=== PATIENT | male | born 1965 | race Caucasian/White ===

== ENCOUNTER 2016-10-27 23:12 | Emergency (ER) | payer MEDICAID ==
[~2016-10-27] VITALS: Ht 185.4 cm; Wt 195.0 kg
[~2016-10-27 23:12] MED LIST: FURO1TAB60 PO; HYDR-3535 PO; METF1000 PO; POTA10CA PO
[2016-10-27 23:20] VITALS: BP 155/81; PULSE 109; RESP 18; TEMP 98.9; O2SAT 93
[2016-10-27 23:58] VITALS: BP 156/84; PULSE 96; RESP 18; TEMP 98.8; O2SAT 96
--- NOTE | 2016-10-28 00:21 | PD ---
HPI Chief Complaint: Oral / Dental Pain or Problem Time Seen by Provider: 00:16 Travel History International Travel<30 days: No Contact w/Intl Traveler<30days: No Traveled to known affect area: No History of Present Illness HPI 51-year-old male patient presents to the ER today because he states that he had his teeth pulled by a dentist last week, and states that the dentist had sewn the gums over his teeth, and he states that he wants an x-ray in order to prove that he still has teeth underneath the gums and that the dentist did not do his job properly. He states that he has ongoing pain since the surgery. Pain is currently a 4 out of 10. He states that otherwise, he had some bleeding initially and it has since stopped. He is concerned that there is still teeth under his gum. He denies any fevers, facial swelling, or any other issues. Modifying Factors: None Associated Signs & Symptoms: Wants to get his teeth checked out after having dental extractions last week Risk Factors: None PFSH Past Medical History Arthritis: No Asthma: No Autoimmune Disease: No Blood Disorders: No Anxiety: No Depression: Yes Heart Rhythm Problems: No Cancer: No Cardiovascular Problems: Yes Chemotherapy: No Chest Pain: Yes Congestive Heart Failure: Yes (BNP 2, 6-20-16) COPD: No Cerebrovascular Accident: Yes Diabetes: Yes Diminished Hearing: No Endocrine: No GERD: No Glaucoma: No Genitourinary: No Hepatitis: No Hiatal Hernia: No Hypertension: Yes Immune Disorder: No Kidney Stones: No Musculoskeletal: Yes (BLE EDEMA) Neurologic: No Psychiatric: No Reproductive: No Respiratory: Yes (SMOKER) Migraines: Yes Myocardial Infarction: No Radiation Therapy: No Renal Failure: No Sickle Cell Disease: No Sleep Apnea: No Thyroid Disease: No Ulcer: No Past Surgical History Abdominal Surgery: No AICD: No Appendectomy: No Arteriovenous Shunt: No Cardiac Surgery: No Cholecystectomy: No Ear Surgery: No Endocrine Surgery: No Eye Surgery: No Genitourinary Surgery: No Gynecologic Surgery: No Insulin Pump: No Joint Replacement: No Oral Surgery: No Pacemaker: No Thoracic Surgery: Yes (TONSILLECTOMY) Tonsillectomy: Yes Other Surgery: Yes (VARICOSE VEINS) Social History Alcohol Use: No Tobacco Use: Yes (1.5 PPD) Substance Use: Yes (SMOKES MARIJUANA, DAILY) Allergies-Medications (Allergen,Severity, Reaction): Coded Allergies: Penicillin (Verified Allergy, Mild, HIVES, 10/27/16) Reported Meds & Prescriptions Reported Meds & Active Scripts Active Reported Potassium Chloride ER (Potassium Chloride) 10 Meq Cap 10 Meq PO DAILY Metformin (Metformin HCl) 1,000 Mg Tab 1,000 Mg PO BIDPC With meals Lasix (Furosemide) 40 Mg Tab 40 Mg PO DAILY Lortab (Hydrocodone-Acetaminophen) 10-325 Mg Tab 1 Tab PO DAILY PRN Review of Systems Except as stated in HPI: all other systems reviewed are Neg Physical Exam Narrative GENERAL: This is a well-nourished, well-developed patient, in no apparent distress. HEAD: Atraumatic. Normocephalic. No temporal or scalp tenderness. No facial edema. NECK: Supple, nontender. No meningeal signs. Trachea midline. DENTAL: A potential is status post extraction of all the upper and lower teeth, no significant gingival edema, erythema, or fluctuance, extraction site appears to be healing well. No malocclusion. Data Data Last Documented VS Vital Signs Date Time Temp Pulse Resp B/P Pulse Ox O2 Delivery O2 Flow Rate FiO2 10/27/16 23:58 98.8 96 18 156/84 96 MDM Medical Decision Making Medical Screen Exam Complete: Yes Emergency Medical Condition: Yes Medical Record Reviewed: Yes Differential Diagnosis Dental issues, wound check Narrative Course At this point, I do not see any signs of poor wound healing or infections. My plan would be to release the patient with follow-up to dentist. Return for any new swelling, pain, and as needed. The plan was discussed with the patient and he states understanding. Diagnosis Primary Impression: Dentalgia Disposition: DISCHARGE HOME Condition: Stable Cherie Marie MD Oct 28, 2016 00:21
[2016-10-28] MEDS ORDERED: ACETAMINOPHEN/HYDROcodone 325 MG/5 MG TAB PO ONE (00:30)
== END 2016-10-28 00:29 | disposition home or self-care (01) ==
LOC: PHED 23:12
DX: K08.89 Other specified disorders of teeth and supporting structures (principal); E11.9 Type 2 diabetes mellitus without complications; I10 Essential (primary) hypertension; F17.200 Nicotine dependence, unspecified, uncomplicated; Z79.84 Long term (current) use of oral hypoglycemic drugs; Z86.59 Personal history of other mental and behavioral disorders; Z86.79 Personal history of other diseases of the circulatory system; Z87.39 Personal history of other diseases of the musculoskeletal system and connective tissue; Z86.69 Personal history of other diseases of the nervous system and sense organs
CPT/HCPCS: 99282

== ENCOUNTER 2017-01-08 08:49 | Inpatient (IN) | payer MEDICAID ==
[~2017-01-08] VITALS: Ht 186.7 cm; Wt 186.0 kg
[2017-01-08 08:59] VITALS: BP 136/77; PULSE 116; RESP 20; TEMP 98.7; O2SAT 91
--- NOTE | 2017-01-08 09:27 | PD ---
HPI Chief Complaint: Edema Time Seen by Provider: 09:12 Travel History International Travel<30 days: No Contact w/Intl Traveler<30days: No Traveled to known affect area: No History of Present Illness HPI 51-year-old male with history of chronic leg edema, has been following up with wound care for his leg issues, presents to the ER today because he states that his legs are weeping more, is foul smelling, and becoming more red. He denies any fevers. He reports shortness of breath although he states that is fairly chronic. He denies other issues. Modifying Factors: None Associated Signs & Symptoms: Bilateral leg weeping, foul-smelling, or more red Risk Factors: Chronic leg edema PFSH Past Medical History Arthritis: No Asthma: No Autoimmune Disease: No Blood Disorders: No Anxiety: No Depression: Yes Heart Rhythm Problems: No Cancer: No Cardiovascular Problems: Yes Chemotherapy: No Chest Pain: Yes Congestive Heart Failure: Yes (BNP 2, 6-20-16) COPD: No Cerebrovascular Accident: Yes Diabetes: Yes Patient Takes Glucophage: No Diminished Hearing: No Endocrine: No Gastrointestinal Disorders: No GERD: No Glaucoma: No Genitourinary: No Hepatitis: No Hiatal Hernia: No Heparin Induced Thrombocytopen: No Hypertension: Yes Immune Disorder: No Implanted Vascular Access Dvce: No Kidney Stones: No Musculoskeletal: Yes (BLE EDEMA) Neurologic: No Psychiatric: No Reproductive: No Respiratory: Yes (SMOKER) Migraines: Yes Myocardial Infarction: No Radiation Therapy: No Renal Failure: No Sickle Cell Disease: No Sleep Apnea: No Thyroid Disease: No Ulcer: No Past Surgical History Abdominal Surgery: No AICD: No Appendectomy: No Arteriovenous Shunt: No Cardiac Surgery: No Cholecystectomy: No Ear Surgery: No Endocrine Surgery: No Eye Surgery: No Genitourinary Surgery: No Gynecologic Surgery: No Insulin Pump: No Joint Replacement: No Neurologic Surgery: No Oral Surgery: No Pacemaker: No Thoracic Surgery: Yes (TONSILLECTOMY) Tonsillectomy: Yes Other Surgery: Yes (VARICOSE VEINS) Social History Alcohol Use: No Tobacco Use: Yes (2 PPD) Substance Use: Yes (SMOKES MARIJUANA, DAILY) Allergies-Medications (Allergen,Severity, Reaction): Coded Allergies: Penicillin (Verified Allergy, Mild, HIVES, 01/08/17) Morphine (Verified Allergy, Unknown, 01/08/17) Reported Meds & Prescriptions Reported Meds & Active Scripts Active Reported Lortab (Hydrocodone-Acetaminophen) 10-325 Mg Tab 1 Tab PO DAILY PRN Review of Systems Except as stated in HPI: all other systems reviewed are Neg Physical Exam Narrative GENERAL: Well-developed middle age white male patient currently in mild respiratory distress. Awake and oriented 3. SKIN: Focused skin assessment warm/dry. HEAD: Atraumatic. Normocephalic. EYES: Pupils equal and round. No scleral icterus. No injection or drainage. ENT: No nasal bleeding or discharge. Mucous membranes pink and moist. NECK: Trachea midline. No JVD. CARDIOVASCULAR: Regular rate and rhythm. No murmur appreciated. RESPIRATORY: No accessory muscle use. Decreased at the bases. Breath sounds equal bilaterally. GASTROINTESTINAL: Abdomen soft, non-tender, nondistended. Hepatic and splenic margins not palpable. MUSCULOSKELETAL: There is intense edema and barking of both legs with notable erythematous areas of weeping in the lower leg areas, tender to palpation. NEUROLOGICAL: Awake and alert. No obvious cranial nerve deficits. Motor grossly within normal limits. Normal speech. PSYCHIATRIC: Appropriate mood and affect; insight and judgment normal. Data Data Last Documented VS Vital Signs Date Time Temp Pulse Resp B/P Pulse Ox O2 Delivery O2 Flow Rate FiO2 01/08/17 11:33 16 01/08/17 08:59 98.7 116 136/77 91 Orders Complete Blood Count With Diff (01/08/17 09:13) Comprehensive Metabolic Panel (01/08/17 09:13) Lactic Acid Sepsis Protocol (01/08/17 09:13) Blood Culture (01/08/17 09:13) Chest, Single Ap (01/08/17 09:13) Ecg Monitoring (01/08/17 09:13) Iv Access Insert/Monitor (01/08/17 09:13) Oximetry (01/08/17 09:13) Oxygen Administration (01/08/17 09:13) B-Type Natriuretic Peptide (01/08/17 09:13) Hydromorphone Pf Inj (Dilaudid Pf Inj) (01/08/17 09:30) Ondansetron Inj (Zofran Inj) (01/08/17 09:30) Hydromorphone Pf Inj (Dilaudid Pf Inj) (01/08/17 11:15) Furosemide Inj (Lasix Inj) (01/08/17 12:00) Clindamycin Inj (Cleocin Inj) (01/08/17 11:49) Labs Laboratory Tests Test 01/08/17 01/08/17 10:00 11:05 Sodium Level 138 MEQ/L Potassium Level 4.0 MEQ/L Chloride Level 103 MEQ/L Carbon Dioxide Level 25.5 MEQ/L Anion Gap 10 MEQ/L Blood Urea Nitrogen 15 MG/DL Creatinine 0.81 MG/DL Estimat Glomerular Filtration 100 ML/MIN Rate Random Glucose 286 MG/DL Calcium Level 8.9 MG/DL Total Bilirubin 0.3 MG/DL Aspartate Amino Transf 31 U/L (AST/SGOT) Alanine Aminotransferase 35 U/L (ALT/SGPT) Alkaline Phosphatase 109 U/L Total Protein 7.4 GM/DL Albumin 2.7 GM/DL White Blood Count 9.7 TH/MM3 Red Blood Count 5.09 MIL/MM3 Hemoglobin 16.1 GM/DL Hematocrit 48.7 % Mean Corpuscular Volume 95.6 FL Mean Corpuscular Hemoglobin 31.7 PG Mean Corpuscular Hemoglobin 33.2 % Concent Red Cell Distribution Width 13.3 % Platelet Count 300 TH/MM3 Mean Platelet Volume 6.7 FL Neutrophils (%) (Auto) 70.5 % Lymphocytes (%) (Auto) 19.3 % Monocytes (%) (Auto) 7.2 % Eosinophils (%) (Auto) 2.2 % Basophils (%) (Auto) 0.8 % Neutrophils # (Auto) 6.8 TH/MM3 Lymphocytes # (Auto) 1.9 TH/MM3 Monocytes # (Auto) 0.7 TH/MM3 Eosinophils # (Auto) 0.2 TH/MM3 Basophils # (Auto) 0.1 TH/MM3 CBC Comment DIFF FINAL Differential Comment Lactic Acid Level 2.3 mmol/L B-Type Natriuretic Peptide 2 PG/ML MDM Medical Decision Making Medical Screen Exam Complete: Yes Emergency Medical Condition: Yes Medical Record Reviewed: Yes Interpretation(s) Laboratory Tests Test 01/08/17 01/08/17 10:00 11:05 Random Glucose 286 MG/DL (74-106) Albumin 2.7 GM/DL (3.4-5.0) Mean Platelet Volume 6.7 FL (7.0-11.0) Neutrophils (%) (Auto) 70.5 % (16.0-70.0) Lactic Acid Level 2.3 mmol/L (0.4-2.0) Differential Diagnosis Bilateral leg swelling, weeping, rednesscellulitis versus worsening leg edema versus CHF Narrative Course This appears to be mostly chronic although there may be a new cellulitis. Patient has been in for same issue for several times. He is afebrile. White blood cell count is normal. She does have a mild shift and lactate elevation. IV antibiotics were ordered for the patient. Patient had requested several times to get pain medications and indicates that he wants Dilaudid. Dilaudid was given in the ER. At this point, it appears that much of this is chronic but considering exacerbation and lactate elevation, I have offered to admit the patient for further treatment. However, the patient is declining at this time stating that he wants to get connected with wound care at [facility]. He states that he had followed up with Dr. Sandoval in the past and had been fired from the practice. He also states that he had a primary care doctor that he doesn't like, had fired his primary care physician and is currently waiting to see a new physician in 2 weeks. Patient also states that he does not like to take Lasix because he thinks that it stops him up. However, he does not have any rash or trouble breathing, or any other symptoms that appear to be an allergic reaction. I think that he will need more Lasix to try to get some of the fluid off. Lasix has been prescribed as well. He will need further follow- up with primary care. He should return for any worsening in symptoms as necessary or return if he changes his mind on that admission. The plan was discussed with him and he states understanding. Diagnosis Primary Impression: Cellulitis of both lower extremities Additional Impression: Chronic venous stasis dermatitis Med/Other Pt SpecificInfo: Prescription(s) given Scripts Clindamycin 300 Mg [id number] Mg PO TID #21 CAP Ref 0 Prov:Cherie Marie MD 01/08/17 Furosemide (Lasix)40 Mg Tab40 Mg PO BID #60 TAB Ref 0 Prov:Cherie Marie MD 01/08/17 Ibuprofen (Motrin Ib)200 Mg [id number] Mg PO QID PRN (PAIN SCALE 1 TO 10) #30 Prov:Cherie Marie MD 01/08/17 Disposition: 01 DISCHARGE HOME Condition: Stable Cherie Marie MD Jan 08, 2017 09:27
[2017-01-08] MEDS ORDERED: HYDROmorphone HCL PF 1 MG/ML VIAL IV PUSH ONE ×2 (09:30→11:15)
[2017-01-08] MEDS ORDERED: ONDANSETRON HCL 4 MG/2 ML VIAL IV PUSH ONE (09:30)
[2017-01-08 10:37] LABS: CHLORIDE 103 MEQ/L (98-107); SODIUM (NA) 138 MEQ/L (136-145)
[2017-01-08 10:41] LABS: ANION GAP 10 MEQ/L (5-15); BICARBONATE 25.5 MEQ/L (21.0-32.0); BLOOD UREA NITROGEN 15 MG/DL (7-18)
[2017-01-08 10:44] LABS: ALT (GPT) 35 U/L (12-78); AST (GOT) 31 U/L (15-37); GLOMERULAR FILTRATION RATE 100 ML/MIN (>89)
[2017-01-08 10:46] LABS: TOTAL BILIRUBIN ADULT 0.3 MG/DL (0.2-1.0)
[2017-01-08 10:47] LABS: ALKALINE PHOSPHATASE 109 U/L (45-117)
[2017-01-08 11:21] LABS: AUTOMATED NEUTROPHIL # 6.8 TH/MM3 (1.8-7.7); BASOPHIL # 0.1 TH/MM3 (0-0.2); BASOPHIL % 0.8 % (0.0-2.0); EOSINOPHIL # 0.2 TH/MM3 (0-0.4); EOSINOPHIL % 2.2 % (0.0-4.0); HEMATOCRIT 48.7 % (39.0-51.0); LYMPH % 19.3 % (9.0-44.0); LYMPHOCYTE # 1.9 TH/MM3 (1.0-4.8); MEAN CELL VOLUME 95.6 FL (80.0-100.0); MEAN CORPUSCULAR HEMOGLOBIN 31.7 PG (27.0-34.0); MEAN CORPUSCULAR HGB CONC 33.2 % (32.0-36.0); MONO % 7.2 % (0.0-8.0); NEUT % 70.5 % (16.0-70.0); PLATELET COUNT 300 TH/MM3 (150-450); RED BLOOD COUNT 5.09 MIL/MM3 (4.50-5.90); RED CELL DISTRIBUTION WIDTH 13.3 % (11.6-17.2); WHITE BLOOD COUNT 9.7 TH/MM3 (4.0-11.0)
[2017-01-08 11:31] LABS: HEMO FLAGS DIFF FINAL
--- NOTE | 2017-01-08 11:46 | RADHPO ---
EXAM DATE/TIME: 01/08/2017 09:29 [place] COMPARISON: CHEST PA & LAT, January 16, 2016, 0:00. INDICATIONS : Short of breath. Bilateral lower extremity edema/weeping. MEDICAL HISTORY : Hypertension. Congestive heart failure. Deep venous thrombosis. Snoker. CVA. BLE edema. SURGICAL HISTORY : Tonsillectomy. BLE vein stripping. ENCOUNTER: Initial ACUITY: 3 days PAIN SCORE: 0/10 LOCATION: chest FINDINGS: The heart appears mildly enlarged. There is no overt congestive failure. No pleural effusions are see n. There is mild chronic appearing interstitial change which is stable compared to previous of 6. The visualized bony structures are grossly intact. CONCLUSION: 1. Chronic appearing interstitial changes and mild cardiac enlargement. No acute abnormality. Hang Castillo MD on January 08, 2017 at 11:43 Board Certified Radiologist. This report was verified electronically.
[2017-01-08] MEDS ORDERED: CLINDAMYCIN INJ 900 MG in SODIUM CHLORIDE 0.9% INJ 100 ML IV STA (11:49)
[2017-01-08] MEDS ORDERED: FUROSEMIDE 40 MG/4 ML VIAL IV PUSH ONE (12:00)
[2017-01-08] MEDS ORDERED: CLIN1CAP6 PO (12:05)
[2017-01-08] MEDS ORDERED: FURO1TAB60 PO (12:05)
[2017-01-08] MEDS ORDERED: IBUP-1129 PO (12:05)
[2017-01-08 12:52] VITALS: BP 141/82; PULSE 82; RESP 20; O2SAT 91
[2017-01-08] MEDS ORDERED: LACTULOSE SYRUP 20 GM/30 ML CUP PO PRN (13:15)
[2017-01-08] MEDS ORDERED: ACETAMINOPHEN/HYDROcodone 325 MG/7.5 MG TAB PO PRN (13:15)
[2017-01-08] MEDS ORDERED: SENNOSIDES 8.6 MG TAB PO PRN (13:15)
[2017-01-08] MEDS ORDERED: ACETAMINOPHEN/HYDROcodone 325 MG/5 MG TAB PO PRN (13:15)
[2017-01-08] MEDS ORDERED: HYDROmorphone HCL PF 1 MG/ML VIAL IV PRN (13:15)
[2017-01-08] MEDS ORDERED: ONDANSETRON HCL 4 MG/2 ML VIAL IVP PRN (13:15)
[2017-01-08] MEDS ORDERED: ACETAMINOPHEN 325 MG TAB PO PRN ×2 (13:15)
[2017-01-08] MEDS ORDERED: MAGNESIUM HYDROXIDE SUSP 30 ML CUP PO PRN (13:15)
[2017-01-08] MEDS ORDERED: BISACODYL 10 MG SUPP RECTAL PRN (13:15)
[2017-01-08] MEDS ORDERED: SODIUM CHLORIDE 0.9% FLUSH 10 ML FLUSH IV FLUSH PRN (13:15)
[2017-01-08 14:29] VITALS: BP 149/89; PULSE 101; RESP 20; TEMP 96.9; O2SAT 94
[2017-01-08 14:47] LABS: LACTIC ACID GHOST NOT REPORTABLE
[2017-01-08] MEDS: HEPARIN SODIUM - SQ 10,000 UNITS/ML VIAL SQ SCH ×3 (15:00→22:00)
[2017-01-08 15:37] VITALS: O2SAT 91
--- NOTE | 2017-01-08 16:53 | HHI.HP ---
[facility] Marquez Solo, Admission Diagnosis chronic lymphedema/chronic venous stasis/cellulitis Diagnoses: (1) Chronic venous stasis dermatitis (2) Cellulitis of both lower extremities (3) Morbid obesity (4) Diabetes mellitus Chief Complaint: edema, leg pain Travel History International Travel<30 Days: No Contact w/Intl Traveler <30 Da: No Traveled to Known Affected Are: No History of Present Illness The patient is a 51-year-old male with history of chronic lower extremity edema and venous stasis dermatitis. He had been seeing wound care for ulcerative lesions of both lower legs, but states that he does not like any of his doctors and has not been back to wound care in a few months. He states that his his legs are becoming increasingly painful. They are having more drainage, which is foul-smelling. They have had increased erythema as well. He denies fever, chills , night sweats. Review of Systems Constitutional: DENIES: Fever, Chills, Night Sweats Eyes: DENIES: Blurred vision, Vision loss Ears, nose, mouth, throat: DENIES: Hearing loss Respiratory: COMPLAINS OF: Shortness of breath, DENIES: Cough, Wheezing, Sputum production Cardiovascular: DENIES: Chest pain, Palpitations, Dyspnea on Exertion, Lower Extremity Edema Gastrointestinal: DENIES: Abdominal pain, Constipation, Diarrhea, Nausea, Vomiting Genitourinary: DENIES: Urinary frequency, Urinary incontinence, Urgency, Hematuria, Dysuria, Nocturia Musculoskeletal: DENIES: Joint pain, Muscle aches Integumentary: COMPLAINS OF: Rash, DENIES: Pruritus Hematologic/lymphatic: DENIES: Bruising Neurologic: DENIES: Headache Past Family Social History Past Medical History Depression Questionable history of congestive heart failure History of CVA Diabetes mellitus Hypertension Chronic bilateral lower extremity edema with venous stasis changes Past Surgical History Tonsillectomy Varicose vein surgery Reported Medications Lortab (Hydrocodone-Acetaminophen) 10-325 Mg Tab 1 Tab PO DAILY PRN Allergies: Coded Allergies: Penicillin (Verified Allergy, Mild, HIVES, 01/08/17) Morphine (Verified Allergy, Unknown, 01/08/17) Family History Denies Social History Smokes 2-3 packs per day. Smokes marijuana daily. Denies alcohol use. Physical Exam Vital Signs Vital Signs Date Time Temp Pulse Resp B/P Pulse Ox O2 Delivery O2 Flow Rate FiO2 01/08/17 15:37 91 21 01/08/17 15:33 91 Room Air 01/08/17 14:29 96.9 101 20 149/89 94 01/08/17 12:52 82 20 141/82 91 01/08/17 11:33 16 01/08/17 08:59 98.7 116 20 136/77 91 Physical Exam GENERAL: Morbidly obese male in no acute distress. HEENT: Normocephalic, atraumatic. Pupils equal, round and reactive. Extraocular movements intact. No scleral icterus. No injection or drainage. Oropharynx is clear. Mucous membranes are moist. CARDIOVASCULAR: Regular rate and rhythm without murmurs, gallops, or rubs. RESPIRATORY: Clear to auscultation. No wheezes, rales, or rhonchi. Breathing is non-labored. GASTROINTESTINAL: Abdomen soft, non-tender, nondistended. EXTREMITIES: Severe bilateral lower extremity edema with venous stasis changes including hyperplasia of the skin. There are multiple ulcerative lesions with weeping. PSYCH: Alert and oriented x 3. Laboratory Laboratory Tests Test 01/08/17 01/08/17 01/08/17 10:00 11:05 13:55 Sodium Level 138 Potassium Level 4.0 Chloride Level 103 Carbon Dioxide Level 25.5 Anion Gap 10 Blood Urea Nitrogen 15 Creatinine 0.81 Estimat Glomerular Filtration 100 Rate Random Glucose 286 Calcium Level 8.9 Total Bilirubin 0.3 Aspartate Amino Transf 31 (AST/SGOT) Alanine Aminotransferase 35 (ALT/SGPT) Alkaline Phosphatase 109 Total Protein 7.4 Albumin 2.7 White Blood Count 9.7 Red Blood Count 5.09 Hemoglobin 16.1 Hematocrit 48.7 Mean Corpuscular Volume 95.6 Mean Corpuscular Hemoglobin 31.7 Mean Corpuscular Hemoglobin 33.2 Concent Red Cell Distribution Width 13.3 Platelet Count 300 Mean Platelet Volume 6.7 Neutrophils (%) (Auto) 70.5 Lymphocytes (%) (Auto) 19.3 Monocytes (%) (Auto) 7.2 Eosinophils (%) (Auto) 2.2 Basophils (%) (Auto) 0.8 Neutrophils # (Auto) 6.8 Lymphocytes # (Auto) 1.9 Monocytes # (Auto) 0.7 Eosinophils # (Auto) 0.2 Basophils # (Auto) 0.1 CBC Comment DIFF FINAL Differential Comment Lactic Acid Level 2.3 1.1 B-Type Natriuretic Peptide 2 Date/Time Procedure Status Source Growth 01/08/17 10:00 Aerobic Blood Culture Received Blood Peripheral Pending 01/08/17 10:00 Anaerobic Blood Culture Received Blood Peripheral Pending Result Diagram: 01/08/17 1105 01/08/17 1000 Imaging Last Impressions Chest X-Ray 01/08/17 0913 Signed Impressions: Service Date/Time: Sunday, January 08, 2017 09:29 - CONCLUSION: 1. Chronic appearing interstitial changes and mild cardiac enlargement. No acute abnormality. Hang Castillo MD Assessment and Plan Assessment and Plan 1. Bilateral lower extremity edema, cellulitis: Continue antibiotics, furosemide. Consult wound care physician. 2. Hypertension: Patient does not report any chronic meds. Monitor blood pressure. Vasotec as needed. 3. Diabetes mellitus: Monitor Accu-Cheks and cover with sliding scale insulin. 4. DVT prophylaxis: Subcutaneous heparin. Francesco Bhat MD Jan 08, 2017 16:53
[2017-01-08] MEDS: CLINDAMYCIN INJ 600 MG in SODIUM CHLORIDE 0.9% INJ 100 ML IV SCH (18:10)
[2017-01-08 19:30] VITALS: O2SAT 91
[2017-01-08] MEDS: HYDROmorphone HCL PF 1 MG/ML VIAL IV PRN (20:25)
[2017-01-08] MEDS: SODIUM CHLORIDE 0.9% FLUSH 10 ML FLUSH IV FLUSH SCH (21:00)
[2017-01-08] MEDS: DOCUSATE SODIUM 50 MG/SENNA 8.6 MG TAB PO SCH (21:00)
[2017-01-08 22:18] VITALS: BP 136/67; PULSE 112; RESP 22; TEMP 96; O2SAT 94
[2017-01-09] MEDS ORDERED: CLINDAMYCIN 150 MG CAP PO ONE (00:55)
[2017-01-09 01:07] VITALS: BP 133/62; PULSE 10; RESP 20; TEMP 98; O2SAT 88
[2017-01-09] MEDS: HEPARIN SODIUM - SQ 10,000 UNITS/ML VIAL SQ SCH ×3 (04:50→21:21)
[2017-01-09] MEDS: CLINDAMYCIN INJ 600 MG in SODIUM CHLORIDE 0.9% INJ 100 ML IV SCH ×6 (06:00→23:57)
[2017-01-09 08:00] VITALS: BP 115/65; PULSE 107; RESP 20; TEMP 98.2; O2SAT 90
[2017-01-09] MEDS: DOCUSATE SODIUM 50 MG/SENNA 8.6 MG TAB PO SCH ×2 (09:00→21:00)
[2017-01-09 09:02] LABS: AUTOMATED NEUTROPHIL # 6.6 TH/MM3 (1.8-7.7); BASOPHIL % 0.5 % (0.0-2.0); EOSINOPHIL # 0.2 TH/MM3 (0-0.4); EOSINOPHIL % 1.8 % (0.0-4.0); LYMPHOCYTE # 1.9 TH/MM3 (1.0-4.8); MEAN CELL VOLUME 95.5 FL (80.0-100.0); MEAN CORPUSCULAR HEMOGLOBIN 31.6 PG (27.0-34.0); MONO % 7.8 % (0.0-8.0); NEUT % 69.9 % (16.0-70.0); PLATELET COUNT 295 TH/MM3 (150-450); RED BLOOD COUNT 4.81 MIL/MM3 (4.50-5.90); RED CELL DISTRIBUTION WIDTH 13.8 % (11.6-17.2); WHITE BLOOD COUNT 9.4 TH/MM3 (4.0-11.0)
[2017-01-09] MEDS: SODIUM CHLORIDE 0.9% FLUSH 10 ML FLUSH IV FLUSH SCH ×2 (09:04→23:51)
[2017-01-09] MEDS: HYDROmorphone HCL PF 1 MG/ML VIAL IV PRN ×5 (09:04→23:57)
[2017-01-09 09:06] LABS: HEMO FLAGS DIFF FINAL
[2017-01-09 09:07] LABS: BICARBONATE 27.7 MEQ/L (21.0-32.0)
[2017-01-09] MEDS ORDERED: PNEUMOCOCCAL POLYVALENT INJ 25 MCG/0.5 ML SYR IM ONE (10:00)
[2017-01-09 12:00] VITALS: BP 124/83; PULSE 102; RESP 20; TEMP 97.9; O2SAT 91
--- NOTE | 2017-01-09 15:19 | HHI.PR ---
Subjective Remarks Follow up lower extremity cellulitis. Patient reporting significant pain in his legs. He is requesting increase in pain meds. He states "if you don't increase them, I'll just call my dharmesh to bring some up here. Either way, my pain will be better today." Objective Vitals Vital Signs Date Time Temp Pulse Resp B/P Pulse Ox O2 Delivery O2 Flow Rate FiO2 01/09/17 13:48 18 01/09/17 12:00 97.9 102 20 124/83 91 01/09/17 08:00 98.2 107 20 115/65 90 01/09/17 01:07 98.0 10 20 133/62 88 01/08/17 22:18 96.0 112 22 136/67 94 01/08/17 19:30 91 21 01/08/17 15:37 91 21 01/08/17 15:33 91 Room Air I/O 01/08/17 01/08/17 01/08/17 01/09/17 01/09/17 01/09/17 07:00 15:00 23:00 07:00 15:00 23:00 Intake Total 100 ml 500 ml 480 ml Output Total 560 ml Balance 100 ml 500 ml -80 ml Intake Oral 500 ml 480 ml IV Total 100 ml Output Urine Total 560 ml Stool Total 0 ml # Voids 2 Result Diagram: 01/09/1781401/09/17814 Imaging Last Impressions Chest X-Ray 01/08/17912 Signed Impressions: Service Date/Time: Sunday, January 08, 2017 09:29 - CONCLUSION: 1. Chronic appearing interstitial changes and mild cardiac enlargement. No acute abnormality. Hang Castillo MD Objective Remarks General: Morbidly obese male in no acute distress. Heart: Regular rate and rhythm. No murmur. Lungs: Clear to auscultation bilaterally. No wheezes, rales, or rhonchi. Breathing is nonlabored. Abdomen: Soft, nontender, nondistended. Extremities: Severe bilateral lower extremity edema with venous stasis changes including hyperplasia of the skin. There are multiple ulcerative lesions with weeping. Psych: Alert and oriented. Procedures None Urinary Catheter: No Vascular Central Line Catheter: No A/P Problem List: (1) Chronic venous stasis dermatitis ICD Code: I83.10 Status: Chronic (2) Cellulitis of both lower extremities ICD Code: L03.115 Status: Acute (3) Morbid obesity ICD Code: E66.01 Status: Chronic (4) Diabetes mellitus ICD Code: E11.9 Status: Chronic Assessment and Plan 1. Bilateral lower extremity edema, cellulitis: Continue antibiotics, furosemide. Wound care physician consulted. 2. Hypertension: Patient does not report any chronic meds. BP is stable. Vasotec as needed. 3. Diabetes mellitus: Monitor Accu-Cheks and cover with sliding scale insulin. 4. DVT prophylaxis: Subcutaneous heparin. Nursing was notified about patient's statement that he would have someone bring him medications from outside the hospital and I asked them to watch him closely. Problem Qualifiers (1) Diabetes mellitus: Francesco Bhat MD Jan 09, 2017 15:19
[2017-01-09] MEDS ORDERED: GLUCAGON 1 MG/ML VIAL OTHER PRN (15:30)
[2017-01-09] MEDS ORDERED: DEXTROSE 50% IN WATER 50 ML VIAL(D50) IV PRN (15:30)
[2017-01-09 16:00] VITALS: BP 140/86; PULSE 101; RESP 20; TEMP 96; O2SAT 96
[2017-01-09] MEDS: INSULIN ASPART SUPPLEMENTAL SCALE SQ SCH ×2 (16:00→21:00)
[2017-01-09 21:05] VITALS: BP 133/84; PULSE 101; RESP 20; TEMP 96.6; O2SAT 93
[2017-01-10] VITALS: BP 141/75; PULSE 104; RESP 20; TEMP 96.4; O2SAT 98
[2017-01-10] MEDS: CLINDAMYCIN INJ 600 MG in SODIUM CHLORIDE 0.9% INJ 100 ML IV SCH ×3 (05:53→17:20)
[2017-01-10] MEDS: HEPARIN SODIUM - SQ 10,000 UNITS/ML VIAL SQ SCH ×3 (05:56→22:00)
[2017-01-10 08:00] VITALS: BP 137/71; PULSE 96; RESP 22; TEMP 97.2; O2SAT 92
[2017-01-10] MEDS: HYDROmorphone HCL PF 1 MG/ML VIAL IV PRN (08:16)
[2017-01-10] MEDS: INSULIN ASPART SUPPLEMENTAL SCALE SQ SCH ×4 (08:19→21:00)
[2017-01-10] MEDS: DOCUSATE SODIUM 50 MG/SENNA 8.6 MG TAB PO SCH ×2 (08:22→21:00)
[2017-01-10] MEDS: SODIUM CHLORIDE 0.9% FLUSH 10 ML FLUSH IV FLUSH SCH ×2 (08:22→21:00)
[2017-01-10 12:00] VITALS: BP 132/75; PULSE 97; RESP 20; TEMP 97.3; O2SAT 92
[2017-01-10] MEDS ORDERED: HYDROmorphone HCL 2 MG TAB PO PRN (15:45)
[2017-01-10 16:00] VITALS: BP 147/82; PULSE 102; RESP 24; TEMP 97.5; O2SAT 94
--- NOTE | 2017-01-10 17:10 | HHI.PR ---
Subjective Remarks Follow up leg cellulitis. Patient still reporting significant pain in his legs. He does not currently have an IV. He is requesting more pain meds. Still with drainage from the legs. Objective Vitals Vital Signs Date Time Temp Pulse Resp B/P Pulse Ox O2 Delivery O2 Flow Rate FiO2 01/10/17 12:00 97.3 97 20 132/75 92 01/10/17 08:00 97.2 96 22 137/71 92 01/10/17 00:00 96.4 104 20 141/75 98 01/09/17 21:08 2 01/09/17 21:05 96.6 101 20 133/84 93 01/09/17 20:51 21 01/09/17 17:57 18 I/O 01/09/17 01/09/17 01/09/17 01/10/17 01/10/17 01/10/17 07:00 15:00 23:00 07:00 15:00 23:00 Intake Total 480 ml 720 ml 700 ml Output Total 560 ml Balance -80 ml 720 ml 700 ml Intake Oral 480 ml 720 ml 500 ml IV Total 200 ml Output Urine Total 560 ml Stool Total 0 ml # Voids 2 3 Result Diagram: 01/09/17 0815 01/09/17814 Imaging Last Impressions Chest X-Ray 01/08/17912 Signed Impressions: Service Date/Time: Sunday, January 08, 2017 09:29 - CONCLUSION: 1. Chronic appearing interstitial changes and mild cardiac enlargement. No acute abnormality. Hang Castillo MD Objective Remarks General: Morbidly obese male in no acute distress. Heart: Regular rate and rhythm. No murmur. Lungs: Clear to auscultation bilaterally. No wheezes, rales, or rhonchi. Breathing is nonlabored. Abdomen: Soft, nontender, nondistended. Extremities: Severe bilateral lower extremity edema with venous stasis changes including verrucous hyperplasia of the skin. There are multiple ulcerative lesions with weeping. Psych: Alert and oriented. Procedures None Urinary Catheter: No Vascular Central Line Catheter: No A/P Problem List: (1) Chronic venous stasis dermatitis ICD Code: I83.10 Status: Chronic (2) Cellulitis of both lower extremities ICD Code: L03.115 Status: Acute (3) Morbid obesity ICD Code: E66.01 Status: Chronic (4) Diabetes mellitus ICD Code: E11.9 Status: Chronic (5) Pseudomonas aeruginosa infection ICD Code: A49.8 Status: Acute (6) Streptococcal infectious disease ICD Code: A49.1 Status: Acute Assessment and Plan 1. Bilateral lower extremity edema, cellulitis: Continue furosemide. Wound care physician consulted. Evaluated by wound care nurse. Patient is refusing dressings/wraps. Wound culture growing Pseudomonas, Streptococcus. Adjust antibiotics. 2. Hypertension: Patient does not report any chronic meds. BP is stable. Vasotec as needed. 3. Diabetes mellitus: Monitor Accu-Cheks and cover with sliding scale insulin. 4. DVT prophylaxis: Subcutaneous heparin. The patient was found by security to be smoking a cigarette in his bathroom. Problem Qualifiers (1) Diabetes mellitus: Francesco Bhat MD Jan 10, 2017 17:10
[2017-01-10] MEDS ORDERED: NICOTINE 21 MG/24 HR PATCH T-DERMAL SCH (17:15)
[2017-01-10] MEDS ORDERED: LEVOFLOXACIN 500 MG TAB PO SCH (17:30)
[2017-01-10] MEDS ORDERED: CLINDAMYCIN 150 MG CAP PO SCH (18:00)
--- NOTE | 2017-01-10 18:22 | PD.WCN.NOT ---
Wound Consult Description: Patient seen on [facility] 3rd floor [place] for evaluation of wounds to bilateral lower extremities. Patient is sitting on side of bed when insurance underwriter arrived in room. Bilateral lower extremities noted with diffuse coverage of cobble stone like lesions presenting like elephantiasis nostras Verrucosa.Heavy foul smelling yellow/ serous drainage and macerated skin noted to oozing areas Dry dark discolored skin noted to areas on lower legs without drainage.Erythema noted to bilateral feet and just below bilateral knee areas .Applied shaving cream to bilateral lower extremities to loosen dirt and and add moisture to dry areas. Let set on BLE for 20 minutes. Instructed patient to let RN rinse shaving cream off BLE and Clean areas on BLE with drainage with wound cleanser.Instructed patient and RN to elevate patients legs on pillows while in bed or chair. Instructed RN to place ultrasorb pads under patients legs loosely wrapped to absorb drainage and change as needed. Patient states, " I will do this myself in the shower." Communicated with: MORIS Carpenter and Doctor Home Recommendation: Please Apply shaving cream to bilateral lower extremities and let sit in legs for 20 minutes. Please rinse off and cleanse oozing areas on legs with wound cleanser. Apply ultrasorb pads under patient's BLE, loosely wrapped around legs to absorb drainage and change as needed. Please elevate BLE while in bed or chair on pillows Anabella Pantoja CRN Jan 10, 2017 18:22
[2017-01-11] MEDS ORDERED: REMOVE OLD PATCH T-DERMAL SCH (09:00)
--- NOTE | 2017-01-22 16:29 | HHI.DS ---
Discharge Summary Admission Date Jan 08, 2017 at 12:31 Discharge Date: Jan 10, 2017 Admitting Diagnosis chronic lymphedema/chronic venous stasis/cellulitis (1) Chronic venous stasis dermatitis ICD Code: I83.10 (2) Cellulitis of both lower extremities ICD Code: L03.115 (3) Morbid obesity ICD Code: E66.01 (4) Diabetes mellitus ICD Code: E11.9 (5) Pseudomonas aeruginosa infection ICD Code: A49.8 (6) Streptococcal infectious disease ICD Code: A49.1 Procedures None Brief History - From Admission The patient is a 51-year-old male with history of chronic lower extremity edema and venous stasis dermatitis. He had been seeing wound care for ulcerative lesions of both lower legs, but states that he does not like any of his doctors and has not been back to wound care in a few months. He states that his his legs are becoming increasingly painful. They are having more drainage, which is foul-smelling. They have had increased erythema as well. He denies fever, chills , night sweats. Imaging Last Impressions Chest X-Ray 01/08/17 0913 Signed Impressions: Service Date/Time: Friday, January 08, 2017 09:29 - CONCLUSION: 1. Chronic appearing interstitial changes and mild cardiac enlargement. No acute abnormality. Hang Castillo MD PE at Discharge General: Morbidly obese male in no acute distress. Heart: Regular rate and rhythm. No murmur. Lungs: Clear to auscultation bilaterally. No wheezes, rales, or rhonchi. Breathing is nonlabored. Abdomen: Soft, nontender, nondistended. Extremities: Severe bilateral lower extremity edema with venous stasis changes including verrucous hyperplasia of the skin. There are multiple ulcerative lesions with weeping. Psych: Alert and oriented. Hospital Course The patient was admitted for management of bilateral lower extremity cellulitis , edema. He was continued on antibiotics and diuretics. Wound care was consulted. Patient showed some improvement in his clinical symptoms, but continued to have significant erythema, edema, and drainage of his lower legs. Pain medications were adjusted. Wound culture grew Pseudomonas. Antibiotics were adjusted. Patient signed out AGAINST MEDICAL ADVICE. Pt Condition on Discharge: Fair Discharge Disposition: Discharge Home (AGAINST MEDICAL ADVICE) Discharge Time: <= 30 minutes Francesco Bhat MD Jan 22, 2017 16:29
== END 2017-01-10 22:24 | disposition left against medical advice (07) | DRG 603 ==
LOC: PHED 08:49 → PHEDA 12:31 → PH3A 14:06
PROVIDERS: ADMIT Family Medicine; ATTEND Family Medicine
DX: L03.115 Cellulitis of right lower limb (principal); I10 Essential (primary) hypertension; Z68.43 Body mass index [BMI] 50.0-59.9, adult; E11.9 Type 2 diabetes mellitus without complications; F32.9 Major depressive disorder, single episode, unspecified; B96.5 Pseudomonas (aeruginosa) (mallei) (pseudomallei) as the cause of diseases classified elsewhere; A49.1 Streptococcal infection, unspecified site; E66.01 Morbid (severe) obesity due to excess calories; L03.116 Cellulitis of left lower limb; I83.12 Varicose veins of left lower extremity with inflammation; I83.11 Varicose veins of right lower extremity with inflammation; F17.210 Nicotine dependence, cigarettes, uncomplicated
CPT/HCPCS: 71010; 76937; 80048; 80053; 82948; 83605; 83880; 85025; 86403; 87040; 87070; 87077; 87186; 87205; 96374; 96375; 96376; J1170; J1644; J1815; J1940; J2405

== ENCOUNTER 2017-03-14 06:48 | Emergency (ER) | payer MEDICAID ==
[~2017-03-14] VITALS: Ht 180.3 cm; Wt 185.0 kg
[~2017-03-14 06:48] MED LIST changes: +CLIN1CAP6 PO; +IBUP-1129 PO; -METF1000 PO; -POTA10CA PO
[2017-03-14 06:51] VITALS: BP 143/75; PULSE 117; RESP 18; TEMP 98.6; O2SAT 94
[2017-03-14 07:06] VITALS: BP 143/75; PULSE 117; RESP 16; TEMP 98.6; O2SAT 94
[2017-03-14] MEDS ORDERED: GABA300C5 PO (07:21)
[2017-03-14] MEDS ORDERED: LEVA750T9 PO (07:40)
--- NOTE | 2017-03-14 08:34 | PD ---
HPI Chief Complaint: Wound/Suture/Staple Re-Check Time Seen by Provider: 07:16 Travel History International Travel<30 days: No Contact w/Intl Traveler<30days: No Traveled to known affect area: No History of Present Illness HPI This patient has chronic lymphedema and wound care problems of his legs for many many years. He is noncompliant with taking care of himself. He is left his leg dressings on for weeks. He came to the ER to get a dressing change. He refuses to have any other things done. He denies fever. Some severity is moderate. No alleviating factors. PFSH Past Medical History Arthritis: No Asthma: No Autoimmune Disease: No Blood Disorders: No Anxiety: No Depression: Yes Heart Rhythm Problems: No Cancer: No Cardiovascular Problems: Yes Chemotherapy: No Chest Pain: Yes Congestive Heart Failure: Yes (BNP 2, 6-20-16) COPD: No Cerebrovascular Accident: Yes Diabetes: Yes Patient Takes Glucophage: No Diminished Hearing: No Endocrine: No Gastrointestinal Disorders: No GERD: No Glaucoma: No Genitourinary: No Hepatitis: No Hiatal Hernia: No Heparin Induced Thrombocytopen: No Hypertension: Yes Immune Disorder: No Implanted Vascular Access Dvce: No Kidney Stones: No Musculoskeletal: Yes (BLE EDEMA) Neurologic: No Psychiatric: No Reproductive: No Respiratory: Yes (SMOKER) Integumentary: Yes (CHRONIC CELLULITIS BLE) Migraines: Yes Myocardial Infarction: No Radiation Therapy: No Renal Failure: No Sickle Cell Disease: No Sleep Apnea: No Thyroid Disease: No Ulcer: No Past Surgical History Abdominal Surgery: No AICD: No Appendectomy: No Arteriovenous Shunt: No Cardiac Surgery: No Cholecystectomy: No Ear Surgery: No Endocrine Surgery: No Eye Surgery: No Genitourinary Surgery: No Gynecologic Surgery: No Insulin Pump: No Joint Replacement: No Neurologic Surgery: No Oral Surgery: No Pacemaker: No Thoracic Surgery: Yes (TONSILLECTOMY) Tonsillectomy: Yes Other Surgery: Yes (VARICOSE VEINS) Social History Alcohol Use: No Tobacco Use: Yes (2 PPD) Substance Use: Yes (SMOKES MARIJUANA, DAILY) Allergies-Medications (Allergen,Severity, Reaction): Coded Allergies: penicillin G (Unverified Allergy, Mild, HIVES, 03/14/17) morphine (Unverified Allergy, Unknown, 03/14/17) Reported Meds & Prescriptions Reported Meds & Active Scripts Active Levaquin (Levofloxacin) 750 Mg Tablet 750 Mg PO DAILY 14 Days Reported Gabapentin 300 Mg Cap 300 Mg PO BID Review of Systems General / Constitutional: No: Fever Eyes: No: Visual changes HENT: No: Headaches Cardiovascular: Positive: Edema, No: Chest Pain or Discomfort Respiratory: No: Shortness of Breath Gastrointestinal: No: Abdominal Pain Genitourinary: No: Dysuria Musculoskeletal: Positive: Edema, No: Pain Skin: No Rash Neurologic: No: Weakness Psychiatric: No: Depression Endocrine: No: Polydipsia Hematologic/Lymphatic: No: Easy Bruising Physical Exam Narrative GASTROINTESTINAL: Abdomen soft, non-tender, morbidly obese. Positive bowel sounds. No hepato-splenomegaly, or palpable masses. No guarding. NECK: Symmetrical appearance, midline trachea. No mass or crepitus. Thyroid without enlargement, tenderness, or mass. Legs: Patient's dressings are dirty and stuck to his legs. I spent literally 20 minutes with scissors cutting the dressings off of his legs When the dressings are off he reports that his legs look better than they had. He has thickened cobblestone-like skin suggesting this is very chronic. There is a bit of maceration to the whaley areas No active fluctuance or drainage Data Data Last Documented VS Vital Signs Date Time Temp Pulse Resp B/P Pulse Ox O2 Delivery O2 Flow Rate FiO2 03/14/17 07:06 98.6 117 16 143/75 94 MDM Medical Decision Making Medical Screen Exam Complete: Yes Emergency Medical Condition: Yes Medical Record Reviewed: Yes Differential Diagnosis Chronic lymphedema, noncompliance, cellulitis Narrative Course I have reviewed the patient's electronic medical record. Patient was hospitalized for 1 day in December for chronic leg problems. He left AMA the following day. I reviewed his culture results from that time which showed pseudomonas sensitive to Levaquin His legs don't look particularly cellulitic today but I'll giving him a prescription for 2 weeks of Levaquin I am wrapped his legs and we will rewrap them as best as we can arrange here in the ER Charge nurse Becka spoke with wound care to try to get him a follow-up Unfortunately they have fired him due to repeated noncompliance and they will not give him a follow-up appointment He desperately needs wound care but his compliance is ruining his chances He should try wound care elsewhere Diagnosis Primary Impression: Lymphedema 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
== END 2017-03-14 09:05 | disposition home or self-care (01) ==
LOC: PHED 06:48
DX: I89.0 Lymphedema, not elsewhere classified (principal); I87.2 Venous insufficiency (chronic) (peripheral); E11.9 Type 2 diabetes mellitus without complications; I10 Essential (primary) hypertension; F17.200 Nicotine dependence, unspecified, uncomplicated; Z86.59 Personal history of other mental and behavioral disorders; Z86.79 Personal history of other diseases of the circulatory system; Z87.39 Personal history of other diseases of the musculoskeletal system and connective tissue; Z87.2 Personal history of diseases of the skin and subcutaneous tissue; Z86.69 Personal history of other diseases of the nervous system and sense organs
CPT/HCPCS: 99283

== ENCOUNTER 2018-02-25 08:26 | Inpatient (IN) ==
[2018-02-25 09:08] LABS: Baso % (Auto) 0.4 % (0.0-2.0); Eos # (Auto) 0.1 th/mm3 (0.0-0.4); Eos % (Auto) 1.6 % (0.0-4.0); Hematocrit 46.9 % (39.0-51.0); Hemoglobin 16.5 gm/dL (13.0-17.0); Lymph # (Auto) 1.7 th/mm3 (1.0-4.8); Lymph % (Auto) 18.8 % (9.0-44.0); Mean Corpuscular HGB Conc 35.3 % (32.0-36.0); Mean Corpuscular Hemoglobin 33.8 pg (27.0-34.0); Mean Corpuscular Volume 95.9 fL (80.0-100.0); Mean Platelet Volume 6.9 fL (7.0-11.0); Mono # (Auto) 0.8 th/mm3 (0.0-0.9); Mono % (Auto) 9.3 % (0.0-8.0); Neut # (Auto) 6.2 th/mm3 (1.8-7.7); Neut % (Auto) 69.9 % (16.0-70.0); Platelet Count 262 th/mm3 (150-450); Red Blood Count 4.89 mil/mm3 (4.50-5.90); Red Cell Distribution Width 13.7 % (11.6-17.2); White Blood Count 8.8 th/mm3 (4.0-11.0)
[2018-02-25] MEDS ORDERED: Sod Chloride 0.9% Inj 1,000 ML IV.SIG ONE ×2 (09:34)
[2018-02-25 09:36] LABS: Alanine Aminotransferase 32 U/L (12-78); Albumin 2.7 g/dL (3.4-5.0); Anion Gap 6 meq/L (5-15); Aspartate Aminotransferase 19 U/L (15-37); Blood Urea Nitrogen 15 mg/dL (7-18); Calcium 8.5 mg/dL (8.5-10.1); Carbon Dioxide 26.9 meq/L (21.0-32.0); Chloride 99 meq/L (98-107); Glomerular Filtration Rate 65 mL/min (>89); Potassium 4.2 meq/L (3.5-5.1); Sodium 132 meq/L (136-145)
[2018-02-25 09:40] LABS: Alkaline Phosphatase 129 U/L (45-117); Glucose,Random 465 mg/dL (74-106); Total Protein 7.4 g/dL (6.4-8.2)
--- NOTE | 2018-02-25 10:24 | ED ---
HPI General Chief Complaint: Wound/Laceration Stated Complaint: Leg Complaint Time Seen by Provider: 02/25/18 08:46 Source: patient Mode of arrival: ambulatory Limitations: no limitations History of Present Illness Onset (ago): year(s) Location: other Context: other (Homeless patient with a history of lymphedema) Associated symptoms: pain (Which he rates at 10/10) Treatments prior to arrival: other (None really. He has someone wrap his legs periodically but not regularly. He was last seen here about a year ago the same complaint he has been fired from the wound care clinic.) Related Data Allergies Allergy/AdvReac Type Severity Reaction Status Date / Time penicillin G Allergy Intermediate HIVES Verified 02/25/18 09:52 morphine Allergy Mild Dizziness Verified 02/25/18 09:52 Review of Systems Except as stated in HPI: all other systems reviewed are negative [facility] Medical History Medical History H/O: varicose veins (Acute) Lymphedema (Acute) Obesity (Acute) Type II diabetes mellitus (Acute) Surgical History Surgical History H/O varicose vein stripping (Acute) Social History Social History Substance History: Active Abuse Second Hand Smoke Exposure: Yes Smoking Status: Current every day smoker Tobacco Type: Cigarettes How Often Do You Have a Drink Containing Alcohol: Never Recent Travel in [facility] within the Last 8 Weeks: No Recent Out of Country Travel within the Last 8 Weeks: No Substance Abuse Detail Marijuana: Substance Use Status: Active Route Used Substance Abuse: Inhalation Immunization History Tetanus Immunization: <5 Years Tetanus Immunization Year if Known: 2016 Hx Influenza Vaccine This Season: Yes Exam Const General: cooperative and disheveled Nutritional Appearance: obese Other: Smells of rotting flesh HENMT Head: normocephalic and atraumatic Eyes Conjunctivae: conjunctivae normal Sclera: sclerae normal EOM: EOM intact bilaterally Neck Neck: normal visual inspection and full ROM Chest Chest: normal inspection of the chest Resp Effort & Inspection: normal respiratory effort and able to speak in complete sentences Cardio Rate: tachycardic Rhythm: regular rhythm Back/Spine/Pelvis Cervical Spine: cervical ROM normal Thoracic/Lumbar Spine: thoraco-lumbar ROM normal Skin General: crusts, fluctulance, hypertrophy, induration and lichenification Other: Purulent drainage from various places on his legs. The skin of his legs is markedly thickened. It is very irregular. It is darkened. It almost looks like it has a short layer of fur. Neuro General: alert, awake, oriented x3, moves all extremities and CN's II-XI intact bilaterally Extrem General: full ROM and normal capillary refill Psych Appearance: grossly normal Mental Status: mental status grossly normal Speech and Movement: speech and movement normal Mood: congruent mood Affect: normal affect Attitude: cooperative Thought Process: normal Thought Content: normal Judgment: judgment good Course Reevaluation(s) Reevaluation #1: Family Practice residents Time: 13:00 Initial Documented Vital Signs Temperature 98.9 F 02/25/18 08:36 Pulse Rate 107 H 02/25/18 08:36 Respiratory Rate 24 02/25/18 08:36 Blood Pressure 145/77 H 02/25/18 08:36 Pulse Oximetry 93 L 02/25/18 08:36 Last Documented Vital Signs Temperature 98.9 F 02/25/18 08:36 Pulse Rate 103 H 02/25/18 08:40 Respiratory Rate 17 02/25/18 12:53 Blood Pressure 145/77 H 02/25/18 08:36 Pulse Oximetry 96 02/25/18 09:35 Medical Decision Making MDM Narrative Medical decision making narrative: This is a homeless man who lives in a storage unit who has a history of lower extremity lymphedema and chronic skin infection who presents to us today complaining with lower extremity pain. He smells like rotting flesh. I have initiated a septic workup. He will be treated empirically with cefepime and vancomycin. He is penicillin allergic. He is hyperglycemic. That is being treated with 2 L of fluid and some IV insulin. The wound care nurse has been consulted. My personal opinion is that this patient needs to have bilateral AKA's. Differential Diagnosis Differential Diagnosis: My differential diagnosis includes but is not limited to localized wound infection, cellulitis, abscess Lab Data Lab results reviewed: Yes I reviewed the patient's lab results. Lab results narrative: His labs are really pretty unremarkable with the exception of his hyperglycemia and his mildly elevated lactic acid. Result diagrams: 02/25/18 08:55 02/25/18 08:55 Lab Results 02/25/18 02/25/18 02/25/18 Range/Units 06:55 08:55 08:55 WBC 8.8 (4.0-11.0) th/mm3 RBC 4.89 (4.50-5.90) mil/mm3 Hgb 16.5 (13.0-17.0) gm/dL Hct 46.9 (39.0-51.0) % MCV 95.9 (80.0-100.0) fL MCH 33.8 (27.0-34.0) pg MCHC 35.3 (32.0-36.0) % RDW 13.7 (11.6-17.2) % Plt Count 262 (150-450) th/mm3 MPV 6.9 L (7.0-11.0) fL Neut % (Auto) 69.9 (16.0-70.0) % Lymph % (Auto) 18.8 (9.0-44.0) % Ida % (Auto) 9.3 H (0.0-8.0) % Eos % (Auto) 1.6 (0.0-4.0) % Baso % (Auto) 0.4 (0.0-2.0) % Neut # (Auto) 6.2 (1.8-7.7) th/mm3 Lymph # (Auto) 1.7 (1.0-4.8) th/mm3 Ida # (Auto) 0.8 (0.0-0.9) th/mm3 Eos # (Auto) 0.1 (0.0-0.4) th/mm3 Baso # (Auto) 0.0 (0.0-0.2) th/mm3 WBC Differential . Differential Comment Auto diff final Sodium 132 L (136-145) meq/L Potassium 4.2 (3.5-5.1) meq/L Chloride 99 (98-107) meq/L Carbon Dioxide 26.9 (21.0-32.0) meq/L Anion Gap 6 (5-15) meq/L BUN 15 (7-18) mg/dL Creatinine 1.18 (0.60-1.30) mg/dL Estimated GFR 65 L (>89) mL/min POC Glucose (68-110) mg/dl Random Glucose 465 H* (74-106) mg/dL Lactic Acid 2.1 H (0.4-2.0) mmol/L Calcium 8.5 (8.5-10.1) mg/dL Total Bilirubin 0.4 (0.2-1.0) mg/dL AST 19 (15-37) U/L ALT 32 (12-78) U/L Alkaline Phosphatase 129 H (45-117) U/L Total Protein 7.4 (6.4-8.2) g/dL Albumin 2.7 L (3.4-5.0) g/dL 02/25/18 Range/Units 11:46 WBC (4.0-11.0) th/mm3 RBC (4.50-5.90) mil/mm3 Hgb (13.0-17.0) gm/dL Hct (39.0-51.0) % MCV (80.0-100.0) fL MCH (27.0-34.0) pg MCHC (32.0-36.0) % RDW (11.6-17.2) % Plt Count (150-450) th/mm3 MPV (7.0-11.0) fL Neut % (Auto) (16.0-70.0) % Lymph % (Auto) (9.0-44.0) % Ida % (Auto) (0.0-8.0) % Eos % (Auto) (0.0-4.0) % Baso % (Auto) (0.0-2.0) % Neut # (Auto) (1.8-7.7) th/mm3 Lymph # (Auto) (1.0-4.8) th/mm3 Ida # (Auto) (0.0-0.9) th/mm3 Eos # (Auto) (0.0-0.4) th/mm3 Baso # (Auto) (0.0-0.2) th/mm3 WBC Differential Differential Comment Sodium (136-145) meq/L Potassium (3.5-5.1) meq/L Chloride (98-107) meq/L Carbon Dioxide (21.0-32.0) meq/L Anion Gap (5-15) meq/L BUN (7-18) mg/dL Creatinine (0.60-1.30) mg/dL Estimated GFR (>89) mL/min POC Glucose 364 H (68-110) mg/dl Random Glucose (74-106) mg/dL Lactic Acid (0.4-2.0) mmol/L Calcium (8.5-10.1) mg/dL Total Bilirubin (0.2-1.0) mg/dL AST (15-37) U/L ALT (12-78) U/L Alkaline Phosphatase (45-117) U/L Total Protein (6.4-8.2) g/dL Albumin (3.4-5.0) g/dL Discharge Plan Discharge Disposition Patient Disposition: 30 Still Patient Discharge Details Diagnosis: Wound infection Physicians Team ED Provider: Lori Reilly Primary Care Provider: Marquez Solo Discharge Interventions Interventions: Vital Signs Last Done: 02/25/18 08:40 Status ED Status: With Doctor
[2018-02-25] MEDS ORDERED: Vancomycin Inj 1 GM/200 ML PIGGYBACK IV.SIG ONE (10:35)
--- NOTE | 2018-02-25 13:49 | P.HPFP ---
History of Present Illness Primary Care Physician: Marquez Solo <Brent Garcia - 02/26/18 16:31> Marquez Solo <Luis Miner - 02/25/18 13:49> History of Present Illness: Patient is a 52-year-old male with past history of lymphedema, diabetes, neuropathy who presents today for worsened lymphedema. He states that his legs have been worsening over the past week. Typically has his bandages changed 2 times per week on Mondays and . Reports 2 days ago and his dressing change his legs "exploded this week" stating that pus, blood, tissue popped off of his legs when the dressings were removed. He reports significant pain in his legs, much worse today, described as a constant burning sensation. He is barely unable to walk normally. Significant feet and ankle swelling, worse today. He states he is unsure of the official diagnosis of his legs, states he has had biopsies in the past with unknown results. He states that outpatient he has been on cephalexin which has been taking up until recently. He also notes neuropathic pain in his feet with numbness, tingling, burning. Typically it is well controlled on Lyrica. He denies nausea, vomiting , fever, chills, abdominal pain, chest pain, shortness of breath, lightheadedness, dizziness, changes in vision, changes in bowel or bladder habits. <Luis Miner - 02/25/18 19:02> - Diagnosis (1) Lymphedema (2) Diabetes (3) Neuropathy (4) Agitation (5) Nutrition, metabolism, and development symptoms <Brent Garcia 02/26/18 16:31> (1) Lymphedema (2) Diabetes (3) Neuropathy (4) Nutrition, metabolism, and development symptoms <Luis Miner - 02/25/18 18:34> Inpatient Certification: I certify that the inpatient services were ordered in accordance with Medicare regulations governing the order. This includes certification that hospital inpatient services are reasonable and necessary and in the case of services not specified as inpatient-only under 42 CFR 419.22(n), that they are appropriately provided as inpatient services in accordance to with the 2-midnight benchmark under 43 CFR 412.3(e) <Brent Garcia 02/26/18 16:31> I certify that the inpatient services were ordered in accordance with Medicare regulations governing the order. This includes certification that hospital inpatient services are reasonable and necessary and in the case of services not specified as inpatient-only under 42 CFR 419.22(n), that they are appropriately provided as inpatient services in accordance to with the 2-midnight benchmark under 43 CFR 412.3(e) <Luis Miner 02/25/18 13:49> Review of Systems Medical lymphedema DM Neuropathy Surgical Varicose vein removal b/l ex lap Family father:Leg problems Mother:Unknown Social: Lives in a storage unit EtOH: None Smokin.5 pd for 25 years drugs: marijuana "medical" LSD previously <Luis iMner 02/25/18 19:02> Constitutional: Denies body ache(s), Denies chills, Denies fatigue, Denies fever (s) <Luis Miner 02/25/18 19:02> Eyes: Denies blind spots, Denies blurry vision, Denies change in vision, Denies loss of vision <Luis Miner 02/25/18 19:02> Ears, Nose, Mouth, and Throat: Denies abnormal hearing, Denies dizziness, Denies mouth pain, Denies neck pain, Denies pain with swallowing <Luis Miner 02/25/18 19:02> Cardiovascular: Reports foot swelling, Denies chest pain, Denies excessive sweating, Denies fast heart rate <Luis Miner 02/25/18 19:02> Respiratory: Denies chest congestion, Denies coughing up blood <Luis Miner 02/25/18 19:02> Gastrointestinal: Denies abdominal pain, Denies black, tarry stools, Denies bright, red blood in stools, Denies change in bowel habits, Denies change in stools, Denies loose stools, Denies nausea, Denies vomiting <Luis Miner 02/25/18 19:02> Genitourinary: Denies painful urination, Denies urinary frequency <Luis Miner 02/25/18 19:02> Musculoskeletal: Reports abnormal walking, Reports back pain, Reports numbness, Reports tingling <Luis Miner 02/25/18 19:02> Skin/Breast: Reports changing lesions, Reports lesions, Reports wounds <Luis Miner 02/25/18 19:02> Neurologic: Reports numbness, Reports tingling, Reports tingling/numbness/ burning sensations, Denies abnormal hearing <Luis Miner 02/25/18 19:02 > Psychiatric: Reports anxiety, Denies confusion, Denies depression <Luis Miner 02/25/18 19:02> Endocrine: Denies cold intolerance, Denies flushing <Luis Miner 19:02> Hematologic/Lymphatic: Denies easy bleeding, Denies easy bruising <Luis Miner 02/25/18 19:02> PMFSH - History History Provided By: Patient <Luis Miner 02/25/18 13:49> - Medical History Medical History: Medical History (Last Reviewed 02/25/18 @ 10:28 by Lori Reilly) H/O: varicose veins Lymphedema Obesity Type II diabetes mellitus <Brent Garcia 02/26/18 16:31> Medical History (Last Reviewed 02/25/18 @ 10:28 by Lori Reilly) H/O: varicose veins Lymphedema Obesity Type II diabetes mellitus <Luis Miner 02/25/18 13:49> - Surgical History Surgical History: Surgical History (Last Updated 02/25/18 @ 09:03 by Elie Marc) H/O varicose vein stripping <Brent Garcia 02/26/18 16:31> Surgical History (Last Updated 02/25/18 @ 09:03 by Elie Marc) H/O varicose vein stripping <Luis Miner 02/25/18 13:49> - Tobacco History Second Hand Smoke Exposure: Yes <Luis Miner 02/25/18 13:49> Tobacco Use In Past 30 Days: Yes <Luis Miner 02/25/18 13:49> Smoking Status: Current every day smoker <Luis Miner 02/25/18 13:49> Tobacco Type: Cigarettes <Luis Miner 02/25/18 13:49> - Alcohol History How Often Do You Have a Drink Containing Alcohol: Never <Luis Miner 13:49> - Substance Use History Substance History: Active Abuse <Luis Miner - 02/25/18 13:49> - Substance Use Type Marijuana Status: Active <Luis Miner 02/25/18 13:49> Route Used: Inhalation <Luis Miner - 02/25/18 13:49> - Travel History Recent Travel in the [facility] Within the Last 8 Weeks: No <Luis Miner - 02/25 13:49> Recent Travel Out of the Country Within the Last 8 Weeks: No <Luis Miner 02/25/18 13:49> - Immunization History Tetanus Immunization: <5 Years <Luis Miner Randy 02/25/18 13:49> Tetanus Immunization Year if Known: 2016 <Luis Miner 02/25/18 13:49> Hx Influenza Vaccine This Season: Yes <Luis Miner 02/25/18 13:49> Medications and Allergies Allergies Allergy/AdvReac Type Severity Reaction Status Date / Time penicillin G Allergy Intermediate HIVES Verified 02/25/18 09:52 morphine Allergy Mild Dizziness Verified 02/25/18 09:52 <Brent Garcia - 02/26/18 16:31> Active Medications: Active Medications Acetaminophen (Tylenol) 650 mg PO Q4H PRN PRN Reason: Temp > 100.4 Hydrocodone Bitart/Acetaminophen (Amma 10/325) 1 tab PO Q4H PRN PRN Reason: PAIN SCALE 6 TO 10 Last Admin: 02/26/18 14:56 Dose: 1 tab Hydrocodone Bitart/Acetaminophen (Amma 5/325) 1 tab PO Q4H PRN PRN Reason: PAIN SCALE 3 TO 5 Al Hydroxide/Mg Hydroxide (Milk Of Magnesia Liq) 30 ml PO Q12H PRN PRN Reason: Mild Constipation Dextrose (D50w Vial) 50 ml IV.PUSH UNSCH PRN PRN Reason: PER HYPOGLYCEMIA PROTOCOL Glucagon (Glucagon Inj) 1 mg OTHER PRN PRN PRN Reason: for Hypoglycemia Protocol Hydromorphone HCl (Dilaudid Pf Inj) 1 mg IV.PUSH Q6HR PRN PRN Reason: BREAKTHROUGH PAIN Last Admin: 02/26/18 10:27 Dose: 1 mg Vancomycin HCl 1,500 mg/ (Sodium Chloride) 515 mls @ 250 mls/hr IV.SIG Q24H [facility] Last Infusion: 02/26/18 11:21 Dose: Infused Cefepime HCl 2,000 mg/ Sodium (Chloride) 100 mls @ 200 mls/hr IV.SIG Q12H [facility] Last Infusion: 02/26/18 14:33 Dose: Infused Metronidazole/Sodium Chloride (Flagyl 500 Mg Inj) 100 mls @ 100 mls/hr IV.SIG Q6H [facility] Last Admin: 02/26/18 14:35 Dose: 100 mls/hr Insulin Aspart (Novolog Insulin Correctional Sugar Inj) 0 unit SQ ACHS [facility]; Protocol Last Admin: 02/26/18 12:33 Dose: 7 unit Ketorolac Tromethamine (Toradol Inj) 30 mg IV.PUSH Q6H PRN PRN Reason: PAIN SCALE 1 TO 2 Stop: 03/02/18 18:33 Last Admin: 02/26/18 01:46 Dose: 30 mg Naloxone HCl (Narcan Inj) 0.4 mg IV.PUSH UNSCH PRN PRN Reason: SEE LABEL COMMENTS Ondansetron HCl (Zofran Inj) 4 mg IV.PUSH Q6H PRN PRN Reason: NAUSEA OR VOMITING Pregabalin (Lyrica) 50 mg PO TID [facility] Last Admin: 02/26/18 12:32 Dose: 50 mg Senna/Docusate Sodium (Margaux-Colace) 1 tab PO BID [facility] Last Admin: 02/26/18 08:51 Dose: Not Given Sennosides (Senokot) 17.2 mg PO Q12H PRN PRN Reason: Moderate Constipation Sodium Chloride (Ns Flush) 2 ml IV.FLUSH BID [facility] Last Admin: 02/26/18 08:54 Dose: 2 ml Sodium Chloride (Ns Flush) 2 ml IV.FLUSH PRN PRN PRN Reason: FLUSH AFTER USING IV ACCESS Sodium Hypochlorite (Dakin's 0.25% Top Soln) 0 ml TOPICAL DAILY [facility] Last Admin: 02/26/18 08:52 Dose: 1 ml <Brent Garcia - 02/26/18 16:31> Exam Vital signs: Vital Signs 02/25/18 17:00 02/25/18 20:00 02/26/18 00:00 Temperature 98.1 F 98.1 F 97.0 F L Pulse Rate 112 H 96 H 99 H Respiratory Rate 19 18 18 Blood Pressure 121/73 139/70 136/108 H Pulse Oximetry 93 L 93 L 92 L 02/26/18 01:10 02/26/18 08:00 02/26/18 12:00 Temperature 97.0 F L 98.4 F 97.8 F Pulse Rate 99 H 91 H 97 H Respiratory Rate 18 17 18 Blood Pressure 136/108 H 149/73 H 138/81 Pulse Oximetry 92 L 97 96 Intake & Output 02/25/18 02/26/18 02/26/18 18:59 06:59 18:59 Intake Total 2815 / 2815 Balance 2815 / 2815 Weight 183.3 kg Intake: IV 2815 / 2815 Maxipime Inj 2,000 MG In NS Inj 200 / 200 100 ML @ 200 mls/hr IV.SIG Q12H [facility] Rx#:[id number] Vancomycin Inj 1,500 MG In NS 515 / 515 Inj 500 ML @ 250 mls/hr IV.SIG Q24H [facility] Rx#:[id number] Other: # Voids 2 Date of Last Bowel Movement 02/24/18 02/24/18 Weight On Admission 158.75 kg <Brent Garcia - 02/26/18 16:31> Vital Signs 02/25/18 08:36 02/25/18 08:40 02/25/18 09:35 Temperature 98.9 F Pulse Rate 107 H 103 H Respiratory Rate 24 Blood Pressure 145/77 H Pulse Oximetry 93 L 96 02/25/18 10:04 02/25/18 12:53 Temperature Pulse Rate Respiratory Rate 21 17 Blood Pressure Pulse Oximetry Intake & Output 02/24/18 02/25/18 02/25/18 18:59 06:59 18:59 Weight 158.757 kg <Luis Miner - 02/25/18 13:49> Narrative: GENERAL: Obese male sitting upright in chair with obvious significant skin changes to bilateral legs, significantly pungent odor SKIN: Bilateral lower extremities with significant skin changes from distal feet through distal thigh. Appears hyperkeratotic, large area of weeping black tissue on left lower extremity, fungal appearing mass below knee. Exquisitely tender to touch. Moist in mid lower legs, dry at the distal ends. HEAD: Atraumatic. Normocephalic. EYES: Pupils equal and round. No scleral icterus. No injection or drainage. ENT: No nasal bleeding or discharge. Mucous membranes pink and moist. NECK: Trachea midline. No JVD. CARDIOVASCULAR: Regular rate and rhythm. RESPIRATORY: No accessory muscle use. Clear to auscultation. Breath sounds equal bilaterally. GASTROINTESTINAL: Abdomen soft, non-tender, nondistended. Hepatic and splenic margins not palpable. NEUROLOGICAL: Awake and alert. No obvious cranial nerve deficits. Motor grossly within normal limits. Five out of 5 muscle strength in the arms and legs. Normal speech. <Luis Miner - 02/25/18 19:02> Results - Labs Result diagrams: 02/26/18 05:33 02/26/18 05:33 <Brent Garcia - 02/26/18 16:31> Abnormal lab results 02/25/18 02/25/18 02/26/18 Range/Units 16:29 20:00 05:33 [place] % (Auto) 8.5 H (0.0-8.0) % BUN (7-18) mg/dL Estimated GFR (>89) mL/min POC Glucose 431 H 352 H (68-110) mg/dl Random Glucose (74-106) mg/dL Calcium (8.5-10.1) mg/dL 02/26/18 02/26/18 02/26/18 Range/Units 05:33 07:50 10:30 [place] % (Auto) (0.0-8.0) % BUN 21 H (7-18) mg/dL Estimated GFR 61 L (>89) mL/min POC Glucose 355 H 306 H (68-110) mg/dl Random Glucose 300 H D (74-106) mg/dL Calcium 8.4 L (8.5-10.1) mg/dL Short CBC 02/26/18 Range/Units 05:33 WBC 7.7 (4.0-11.0) th/mm3 Hgb 16.6 (13.0-17.0) gm/dL Hct 48.2 (39.0-51.0) % Plt Count 263 (150-450) th/mm3 [facility] 02/26/18 05:33 Sodium 138 Potassium 4.1 Chloride 102 Carbon Dioxide 29.9 BUN 21 H Creatinine 1.24 Calcium 8.4 L <Brent Garcia - 02/26/18 16:31> Abnormal lab results 02/25/18 02/25/18 02/25/18 Range/Units 06:55 08:55 08:55 MPV 6.9 L (7.0-11.0) fL [place] % (Auto) 9.3 H (0.0-8.0) % Sodium 132 L (136-145) meq/L Estimated GFR 65 L (>89) mL/min POC Glucose (68-110) mg/dl Random Glucose 465 H* (74-106) mg/dL Lactic Acid 2.1 H (0.4-2.0) mmol/L Alkaline Phosphatase 129 H (45-117) U/L Albumin 2.7 L (3.4-5.0) g/dL 02/25/18 Range/Units 11:46 MPV (7.0-11.0) fL [place] % (Auto) (0.0-8.0) % Sodium (136-145) meq/L Estimated GFR (>89) mL/min POC Glucose 364 H (68-110) mg/dl Random Glucose (74-106) mg/dL Lactic Acid (0.4-2.0) mmol/L Alkaline Phosphatase (45-117) U/L Albumin (3.4-5.0) g/dL Short CBC 02/25/18 Range/Units 08:55 WBC 8.8 (4.0-11.0) th/mm3 Hgb 16.5 (13.0-17.0) gm/dL Hct 46.9 (39.0-51.0) % Plt Count 262 (150-450) th/mm3 BMP 02/25/18 08:55 Sodium 132 L Potassium 4.2 Chloride 99 Carbon Dioxide 26.9 BUN 15 Creatinine 1.18 Calcium 8.5 Liver Function 02/25/18 Range/Units 08:55 Total Bilirubin 0.4 (0.2-1.0) mg/dL AST 19 (15-37) U/L ALT 32 (12-78) U/L Alkaline Phosphatase 129 H (45-117) U/L Albumin 2.7 L (3.4-5.0) g/dL <Luis Miner - 02/25/18 13:49> Caprini VTE Risk Assessment Capblancai VTE Risk Assessment: Moderate/High Risk (score >= 2) <Luis Miner - 02/25/18 19:02> Caprini Risk Assessment Model: Point Value = 1 Point Value = 2 Point Value = 3 Point Value = 5 Age 41-60 Minor surgery BMI > 25 kg/m2 Swollen legs Varicose veins or History of unexplained or recurrent spontaneous Oral contraceptives or hormone replacement Sepsis (< 1 month) Serious lung disease, including pneumonia (< 1 month) Abnormal pulmonary function Acute myocardial infarction Congestive heart failure (< 1 month) History of inflammatory bowel disease Medical patient at bed rest Age 61-74 Arthroscopic surgery Major open surgery (> 45 min) Laparoscopic surgery (> 45 min) Malignancy Confined to bed (> 72 hours) Immobilizing plaster cast Central venous access Age >= 75 History of VTE Family history of VTE Factor V Leiden Prothrombin [id number] Lupus anticoagulant Anticardiolipin antibodies Elevated serum homocysteine Heparin-induced thrombocytopenia Other congenital or acquired thrombophilia Stroke (< 1 month) Elective arthroplasty Hip, pelvis, or leg fracture Acute spinal cord injury (< 1 month) <Brent Garcia - 02/26/18 16:31> Point Value = 1 Point Value = 2 Point Value = 3 Point Value = 5 Age 41-60 Minor surgery BMI > 25 kg/m2 Swollen legs Varicose veins or History of unexplained or recurrent spontaneous Oral contraceptives or hormone replacement Sepsis (< 1 month) Serious lung disease, including pneumonia (< 1 month) Abnormal pulmonary function Acute myocardial infarction Congestive heart failure (< 1 month) History of inflammatory bowel disease Medical patient at bed rest Age 61-74 Arthroscopic surgery Major open surgery (> 45 min) Laparoscopic surgery (> 45 min) Malignancy Confined to bed (> 72 hours) Immobilizing plaster cast Central venous access Age >= 75 History of VTE Family history of VTE Factor V Leiden Prothrombin [id number] Lupus anticoagulant Anticardiolipin antibodies Elevated serum homocysteine Heparin-induced thrombocytopenia Other congenital or acquired thrombophilia Stroke (< 1 month) Elective arthroplasty Hip, pelvis, or leg fracture Acute spinal cord injury (< 1 month) <Luis Miner - 02/25/18 13:49> Prophylaxis Regimen: Total Risk Factor Score Risk Level Prophylaxis Regimen 0-1 Low Early ambulation 2 Moderate Order ONE of the following: *Sequential Compression Device (SCD) *Heparin 5000 units SQ BID 3-4 Higher Order ONE of the following medications: *Heparin 5000 units SQ TID *Enoxaparin/Lovenox 40 mg SQ daily (WT < 150 kg, CrCl > 30 mL/min) *Enoxaparin/Lovenox 30 mg SQ daily (WT < 150 kg, CrCl > 10-29 mL/min) *Enoxaparin/Lovenox 30 mg SQ BID (WT < 150 kg, CrCl > 30 mL/min) AND/OR *Sequential Compression Device (SCD) 5 or more Highest Order ONE of the following medications: *Heparin 5000 units SQ TID (Preferred with Epidurals) *Enoxaparin/Lovenox 40 mg SQ daily (WT < 150 kg, CrCl > 30 mL/min) *Enoxaparin/Lovenox 30 mg SQ daily (WT < 150 kg, CrCl > 10-29 mL/min) *Enoxaparin/Lovenox 30 mg SQ BID (WT < 150 kg, CrCl > 30 mL/min) AND *Sequential Compression Device (SCD) <Brent Garcia - 02/26/18 16:31> Total Risk Factor Score Risk Level Prophylaxis Regimen 0-1 Low Early ambulation 2 Moderate Order ONE of the following: *Sequential Compression Device (SCD) *Heparin 5000 units SQ BID 3-4 Higher Order ONE of the following medications: *Heparin 5000 units SQ TID *Enoxaparin/Lovenox 40 mg SQ daily (WT < 150 kg, CrCl > 30 mL/min) *Enoxaparin/Lovenox 30 mg SQ daily (WT < 150 kg, CrCl > 10-29 mL/min) *Enoxaparin/Lovenox 30 mg SQ BID (WT < 150 kg, CrCl > 30 mL/min) AND/OR *Sequential Compression Device (SCD) 5 or more Highest Order ONE of the following medications: *Heparin 5000 units SQ TID (Preferred with Epidurals) *Enoxaparin/Lovenox 40 mg SQ daily (WT < 150 kg, CrCl > 30 mL/min) *Enoxaparin/Lovenox 30 mg SQ daily (WT < 150 kg, CrCl > 10-29 mL/min) *Enoxaparin/Lovenox 30 mg SQ BID (WT < 150 kg, CrCl > 30 mL/min) AND *Sequential Compression Device (SCD) <Luis Miner - 02/25/18 13:49> Assessment and Plan - Assessment (1) Lymphedema Code(s): I89.0 - Lymphedema, not elsewhere classified Status: Acute (2) Diabetes Code(s): E11.9 - Type 2 diabetes mellitus without complications Status: Acute (3) Neuropathy Code(s): G62.9 - Polyneuropathy, unspecified Status: Acute (4) Agitation Code(s): R45.1 - Restlessness and agitation Status: Acute (5) Nutrition, metabolism, and development symptoms Code(s): R63.8 - Other symptoms and signs concerning food and fluid intake Status: Acute <Brent Garcia - 02/26/18 16:31> (1) Lymphedema Code(s): I89.0 - Lymphedema, not elsewhere classified Status: Acute Plan: Significant chronic bilateral lower extremity lymphedema with possible wet gangrene. -Cefepime 2 g every 12 hours, vancomycin 1500 mg every 24 hours -Follow-up blood cultures, wound culture -Follow-up vascular surgery recommendations -Follow-up wound care recommendations -Follow-up infectious disease recommendations -Pain control (2) Diabetes Code(s): E11.9 - Type 2 diabetes mellitus without complications Status: Acute Plan: History of diabetes, poorly controlled -Monitor blood glucose -Follow-up A1c -Low-dose sliding scale insulin (3) Neuropathy Code(s): G62.9 - Polyneuropathy, unspecified Status: Acute Plan: History of neuropathy, reportedly controlled with Lyrica -Lyrica 50 mg p.o. 3 times daily (4) Nutrition, metabolism, and development symptoms Code(s): R63.8 - Other symptoms and signs concerning food and fluid intake Status: Acute Plan: Fluids: Tolerating p.o. Electrolytes: Monitor and replete as needed Nutrition: Tolerating p.o. diabetic diet <Luis Miner - 02/25/18 18:34>
[2018-02-25] MEDS ORDERED: HYDROmorphone PF Inj 0.5 MG/0.5 ML Syringe IV.PUSH ONE (14:12)
--- NOTE | 2018-02-25 14:14 | P.PNWCN ---
Wound Care Nurse Consult Description: Wound consult ordered by for wound management. Communicated with: Larry SUBRAMANIAN, Recommendation: 1. Apply shaving cream in thick layer to bilateral lower extremities now and leave in place x20 min rinse with warm soapy water. 2. Cleanse bilateral lower extremities with [place] 0.25% strength soaked gauze leave in place for 5 min.Cover open areas with ABDs secure with rolled gauze/ tanja wrap. 3. Change dressings daily or as needed fro exudate management/dislodgement. 4. Follow up with out patient wound center if needed Additional information: Patient was seen today by senior technical writer for wound management of bilateral lower extremities.Patient sitting up in chair upon writers arrival.Patient made senior technical writer aware of prior history of not being treated by out patient wound center nor lymphedema specialist due to them not know what they are doing.Patient has been having friend wrap lower extremities with rolled gauze twice a week.blue procedure pads removed from lower extremities to reveal bilateral lower extremities +2-3 pitting edema senior technical writer unable to completely evaluate due to heavy cobble stone papulonodular with very foul smell present.Patient has cobblestone/fungal looking growth from ~1inch below knee to tip of digits.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 Carpet Repairer explained to patient the clinical traits of chronic lymphedema Ex: cobble stone lesions ,Odor ,Fungal lesions, ENV, gangrene.Patient stated he did not have lymphedema and requested a binder stripper hand look at legs to heal them.No further questions or concerns upon writers departure. Wound/Pressure Injury - Wound bilateral legs Wound Assessment: Admission Wound Type: Lesion Is This a Chronic Wound: Yes Requested from Provider a Wound Care Consult: No (Phong SUBRAMANIAN,[facility] seen 02/25) Wound Bed Appearance: Edematous, Necrotic, Peeling Skin, Red, Yellow Wound Bed Appearance: bilateral lower extremities have Wound Dressing Change Date: 02/25/18
[2018-02-25] MEDS ORDERED: Acetaminophen 325 MG Tablet PO PRN (14:29)
[2018-02-25] MEDS ORDERED: Dextrose 50% in Water 50 ML Vial IV.PUSH PRN (14:37)
[2018-02-25] MEDS ORDERED: HYDROmorphone PF Inj 2 MG/ML Vial IV.PUSH ONE (14:45)
--- NOTE | 2018-02-25 17:28 | P.PNVS ---
Subjective Subjective/Hospital Course: Pt seen briefly today - full consult to follow. Pt getting cleaned up in shower. Notes legs have been a problem for years. Objective Vital Signs / I&O: Vital Signs 02/25/18 08:36 02/25/18 08:40 02/25/18 09:35 Temperature 98.9 F Pulse Rate 107 H 103 H Respiratory Rate 24 Blood Pressure 145/77 H Pulse Oximetry 93 L 96 02/25/18 10:04 02/25/18 12:53 Temperature Pulse Rate Respiratory Rate 21 17 Blood Pressure Pulse Oximetry Intake & Output 02/24/18 02/25/18 02/25/18 18:59 06:59 18:59 Weight 158.757 kg Physical Exam: B LE wounds knees to toes, stasis changes circumferentially + odor and drainage Laboratory Results - last 24 hr 02/25/18 02/25/18 02/25/18 06:55 08:55 08:55 WBC 8.8 RBC 4.89 Hgb 16.5 Hct 46.9 MCV 95.9 MCH 33.8 MCHC 35.3 RDW 13.7 Plt Count 262 MPV 6.9 L Neut % (Auto) 69.9 Lymph % (Auto) 18.8 [place] % (Auto) 9.3 H Eos % (Auto) 1.6 Baso % (Auto) 0.4 Neut # (Auto) 6.2 Lymph # (Auto) 1.7 [place] # (Auto) 0.8 Eos # (Auto) 0.1 Baso # (Auto) 0.0 WBC Differential . Differential Comment Auto diff final Sodium 132 L Potassium 4.2 Chloride 99 Carbon Dioxide 26.9 Anion Gap 6 BUN 15 Creatinine 1.18 Estimated GFR 65 L POC Glucose Random Glucose 465 H* Lactic Acid 2.1 H Calcium 8.5 Total Bilirubin 0.4 AST 19 ALT 32 Alkaline Phosphatase 129 H Total Protein 7.4 Albumin 2.7 L 02/25/18 02/25/18 02/25/18 11:46 15:18 16:29 WBC RBC Hgb Hct MCV MCH MCHC RDW Plt Count MPV Neut % (Auto) Lymph % (Auto) [place] % (Auto) Eos % (Auto) Baso % (Auto) Neut # (Auto) Lymph # (Auto) [place] # (Auto) Eos # (Auto) Baso # (Auto) WBC Differential Differential Comment Sodium Potassium Chloride Carbon Dioxide Anion Gap BUN Creatinine Estimated GFR POC Glucose 364 H 431 H Random Glucose Lactic Acid 1.3 Calcium Total Bilirubin AST ALT Alkaline Phosphatase Total Protein Albumin Assessment and Plan - Plan Pt with longstanding lymphedema bilaterally. He is ambulatory. Needs good wound care and compression (toes to thighs). Full consult to follow. Continue aggressive management of glucose.
[2018-02-25] MEDS ORDERED: HYDROmorphone PF Inj 1 MG/ML Ampul IV.PUSH PRN (18:34)
[2018-02-25] MEDS ORDERED: Naloxone Inj 0.4 MG/ML Vial IV.PUSH PRN (18:34)
[2018-02-25] MEDS: Insulin NovoLOG Aspart Correctional Sugar Inj SQ SCH ×2 (18:44→20:12)
[2018-02-25] MEDS: Ketorolac Inj 30 MG/ML (IVP) Vial IV.PUSH PRN (19:08)
[2018-02-25] MEDS: Senna/Docusate Sodium 8.6/50 MG Tablet PO SCH (20:12)
[2018-02-25] MEDS: Pregabalin 25 MG Capsule PO SCH (20:12)
[2018-02-25] MEDS: HYDROmorphone PF Inj 2 MG/ML Vial IV.PUSH PRN (20:12)
[2018-02-26] MEDS: Ketorolac Inj 30 MG/ML (IVP) Vial IV.PUSH PRN (01:46)
[2018-02-26] MEDS: HYDROmorphone PF Inj 2 MG/ML Vial IV.PUSH PRN ×3 (04:29→17:17)
[2018-02-26 06:15] LABS: Baso % (Auto) 0.4 % (0.0-2.0); Eos # (Auto) 0.1 th/mm3 (0.0-0.4); Eos % (Auto) 1.7 % (0.0-4.0); Hematocrit 48.2 % (39.0-51.0); Hemoglobin 16.6 gm/dL (13.0-17.0); Lymph # (Auto) 1.8 th/mm3 (1.0-4.8); Lymph % (Auto) 23.3 % (9.0-44.0); Mean Corpuscular HGB Conc 34.4 % (32.0-36.0); Mean Corpuscular Hemoglobin 33.1 pg (27.0-34.0); Mean Corpuscular Volume 96.3 fL (80.0-100.0); Mono # (Auto) 0.7 th/mm3 (0.0-0.9); Mono % (Auto) 8.5 % (0.0-8.0); Neut # (Auto) 5.1 th/mm3 (1.8-7.7); Neut % (Auto) 66.1 % (16.0-70.0); Platelet Count 263 th/mm3 (150-450); Red Cell Distribution Width 13.8 % (11.6-17.2); White Blood Count 7.7 th/mm3 (4.0-11.0)
[2018-02-26 06:48] LABS: Calcium 8.4 mg/dL (8.5-10.1); Carbon Dioxide 29.9 meq/L (21.0-32.0)
[2018-02-26 06:50] LABS: Potassium 4.1 meq/L (3.5-5.1)
[2018-02-26] MEDS: Senna/Docusate Sodium 8.6/50 MG Tablet PO SCH ×2 (08:51→22:25)
[2018-02-26] MEDS: Pregabalin 25 MG Capsule PO SCH ×3 (08:51→17:17)
--- NOTE | 2018-02-26 08:51 | P.CONVS ---
History of Present Illness Service: Cardiovascular Consult date: 02/26/18 Reason for Consult: Lymphedema Primary Care Provider: Marquez Solo [facility] Provider: Marquez Solo Chief Complaint: Bilateral lower extremity swelling History of Present Illness: Mr. Connell is a morbidly obese 52 yo angry irritated male with a PMH of lymphedema, diabetes and neuropathy. Pt c/o worsened lymphedema over the past several weeks with chronic worsening bilateral lower extremity foul smelling wounds. Pt reports early this week while having his dressings changed his wounds worsened and started to bleed with his routine dressing changes. Pt c/o B LE pain in his legs ("all over") Pt denied claudication or rest pain B LE motor intact Pt reported he has been seen by Dr. Bender and Dr. Sandoval for his chronic wounds who both have referred him to a lymphedema clinic. Pt stated he was unable to start therapy at the lymphedema clinic due to his chronic open wounds Pt does not wear compression stockings Pt emotionally volatile with homicidal ideation- Reports he wants to cause physical harm to members of our health care team Review of Systems Constitutional: Denies chills, Denies fever(s) Cardiovascular: Reports foot swelling (Bilateral lower extremity lymphedema from toes to upper thighs), Denies chest pain, Denies shortness of breath Skin/Breast: Reports change in skin color (lypodermatosclerosis B LE), Reports wounds (B LE ) PMFSH - History History Provided By: Patient - Medical / Surgical Hx Neg / Unobtainable Medical Problems Denied: Yes - Medical History Medical History: Medical History (Last Reviewed 02/26/18 @ 08:38 by Payton Tellez) H/O: varicose veins Lymphedema Obesity Type II diabetes mellitus - Surgical History Surgical History: Surgical History (Last Reviewed 02/26/18 @ 08:38 by Payton Tellez) H/O varicose vein stripping - Tobacco History Second Hand Smoke Exposure: Yes Tobacco Use In Past 30 Days: Yes Smoking Status: Current every day smoker Tobacco Type: Cigarettes - Alcohol History How Often Do You Have a Drink Containing Alcohol: Never - Substance Use History Substance History: Active Abuse - Substance Use Type Marijuana Status: Active Route Used: Inhalation Frequency: 1 oz/wk Last Used: 02/25/18 Reason for Use: Calm Down, Feels Good Comment: helps with pain - Travel History Recent Travel in the [place] Within the Last 8 Weeks: No Recent Travel Out of the Country Within the Last 8 Weeks: No - Immunization History Tetanus Immunization: <5 Years Tetanus Immunization Year if Known: 2016 Hx Influenza Vaccine This Season: Yes Medications and Allergies Allergies Allergy/AdvReac Type Severity Reaction Status Date / Time penicillin G Allergy Intermediate HIVES Verified 02/25/18 09:52 morphine Allergy Mild Dizziness Verified 02/25/18 09:52 Home Medications Medication Instructions Recorded Confirmed Type cephalexin [Keflex] 750 mg PO TID 02/25/18 02/25/18 History hydrocodone-acetaminophen 2 tab PO Q6H PRN 02/25/18 02/25/18 History pregabalin [Lyrica] 150 mg PO BID 02/25/18 02/25/18 History Active Medications: Active Medications Acetaminophen (Tylenol) 650 mg PO Q4H PRN PRN Reason: Temp > 100.4 Al Hydroxide/Mg Hydroxide (Milk Of Magnesia Liq) 30 ml PO Q12H PRN PRN Reason: Mild Constipation Dextrose (D50w Vial) 50 ml IV.PUSH UNSCH PRN PRN Reason: PER HYPOGLYCEMIA PROTOCOL Glucagon (Glucagon Inj) 1 mg OTHER PRN PRN PRN Reason: for Hypoglycemia Protocol Hydromorphone HCl (Dilaudid Pf Inj) 1 mg IV.PUSH Q6HR PRN PRN Reason: BREAKTHROUGH PAIN Last Admin: 02/26/18 04:29 Dose: 1 mg Vancomycin HCl 1,500 mg/ (Sodium Chloride) 515 mls @ 250 mls/hr IV.SIG Q24H [facility] Cefepime HCl 2,000 mg/ Sodium (Chloride) 100 mls @ 200 mls/hr IV.SIG Q12H [facility] Last Infusion: 02/26/18 07:16 Dose: Infused Insulin Aspart (Novolog Insulin Correctional Sugar Inj) 0 unit SQ ACHS [facility]; Protocol Last Admin: 02/25/18 20:12 Dose: 9 unit Ketorolac Tromethamine (Toradol Inj) 30 mg IV.PUSH Q6H PRN PRN Reason: PAIN 6-10;IF UNABLE TO TAKE PO Stop: 03/02/18 18:33 Last Admin: 02/26/18 01:46 Dose: 30 mg Naloxone HCl (Narcan Inj) 0.4 mg IV.PUSH UNSCH PRN PRN Reason: SEE LABEL COMMENTS Ondansetron HCl (Zofran Inj) 4 mg IV.PUSH Q6H PRN PRN Reason: NAUSEA OR VOMITING Pregabalin (Lyrica) 50 mg PO TID [facility] Last Admin: 02/25/18 20:12 Dose: 50 mg Senna/Docusate Sodium (Margaux-Colace) 1 tab PO BID [facility] Last Admin: 02/25/18 20:12 Dose: 1 tab Sennosides (Senokot) 17.2 mg PO Q12H PRN PRN Reason: Moderate Constipation Sodium Chloride (Ns Flush) 2 ml IV.FLUSH BID [facility] Last Admin: 02/25/18 20:13 Dose: 2 ml Sodium Chloride (Ns Flush) 2 ml IV.FLUSH PRN PRN PRN Reason: FLUSH AFTER USING IV ACCESS Sodium Hypochlorite (Dakin's 0.25% Top Soln) 0 ml TOPICAL DAILY [facility] Tramadol HCl (Ultram) 50 mg PO Q4H PRN PRN Reason: PAIN SCALE 3 TO 5 Physical Exam Vital Signs / I&O: Vital Signs 02/25/18 08:36 02/25/18 08:40 02/25/18 09:35 Temperature 98.9 F Pulse Rate 107 H 103 H Respiratory Rate 24 Blood Pressure 145/77 H Pulse Oximetry 93 L 96 02/25/18 10:04 02/25/18 12:53 02/25/18 17:00 Temperature 98.1 F Pulse Rate 112 H Respiratory Rate 21 17 19 Blood Pressure 121/73 Pulse Oximetry 93 L 02/25/18 20:00 02/26/18 00:00 02/26/18 01:10 Temperature 98.1 F 97.0 F L 97.0 F L Pulse Rate 96 H 99 H 99 H Respiratory Rate 18 18 18 Blood Pressure 139/70 136/108 H 136/108 H Pulse Oximetry 93 L 92 L 92 L Intake & Output 02/25/18 02/26/18 02/26/18 18:59 06:59 18:59 Intake Total 2200 / 2200 Balance 2200 / 2200 Weight 183.3 kg Intake: IV 0 / 2200 Maxipime Inj 2,000 MG In NS Inj 100 / 100 100 ML @ 200 mls/hr IV.SIG Q12H [facility] Rx#:[id number] Other: # Voids 2 Date of Last Bowel Movement 02/24/18 Weight On Admission 158.75 kg Neuro: GCS 15 A&OX3 NAD Neck: No JVD Distention Heart: RRR w/o M/G/R + S1,S2 Lungs: CTA Vascular: Lymphedema to B LE with multiple foul smelling wounds LE warm w/ motor intact Extremities: Lymphedema from toes to upper thighs 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 Differential Comment Auto diff final Sodium 132 L Potassium 4.2 Chloride 99 Carbon Dioxide 26.9 Anion Gap 6 BUN 15 Creatinine 1.18 Estimated GFR 65 L POC Glucose Random Glucose 465 H* Lactic Acid 2.1 H Calcium 8.5 Total Bilirubin 0.4 AST 19 ALT 32 Alkaline Phosphatase 129 H Total Protein 7.4 Albumin 2.7 L 02/25/18 02/25/18 02/25/18 11:46 15:18 16:29 WBC RBC Hgb Hct MCV MCH MCHC RDW Plt Count MPV Neut % (Auto) Lymph % (Auto) [place] % (Auto) Eos % (Auto) Baso % (Auto) Neut # (Auto) Lymph # (Auto) [place] # (Auto) Eos # (Auto) Baso # (Auto) WBC Differential Differential Comment Sodium Potassium Chloride Carbon Dioxide Anion Gap BUN Creatinine Estimated GFR POC Glucose 364 H 431 H Random Glucose Lactic Acid 1.3 Calcium Total Bilirubin AST ALT Alkaline Phosphatase Total Protein Albumin 02/25/18 02/26/18 02/26/18 20:00 05:33 05:33 WBC 7.7 RBC 5.00 Hgb 16.6 Hct 48.2 MCV 96.3 MCH 33.1 MCHC 34.4 RDW 13.8 Plt Count 263 MPV 7.0 Neut % (Auto) 66.1 Lymph % (Auto) 23.3 [place] % (Auto) 8.5 H Eos % (Auto) 1.7 Baso % (Auto) 0.4 Neut # (Auto) 5.1 Lymph # (Auto) 1.8 [place] # (Auto) 0.7 Eos # (Auto) 0.1 Baso # (Auto) 0.0 WBC Differential . Differential Comment Auto diff final Sodium 138 Potassium 4.1 Chloride 102 Carbon Dioxide 29.9 Anion Gap 6 BUN 21 H Creatinine 1.24 Estimated GFR 61 L POC Glucose 352 H Random Glucose 300 H D Lactic Acid Calcium 8.4 L Total Bilirubin AST ALT Alkaline Phosphatase Total Protein Albumin 02/26/18 07:50 WBC RBC Hgb Hct MCV MCH MCHC RDW Plt Count MPV Neut % (Auto) Lymph % (Auto) [place] % (Auto) Eos % (Auto) Baso % (Auto) Neut # (Auto) Lymph # (Auto) [place] # (Auto) Eos # (Auto) Baso # (Auto) WBC Differential Differential Comment Sodium Potassium Chloride Carbon Dioxide Anion Gap BUN Creatinine Estimated GFR POC Glucose 355 H Random Glucose Lactic Acid Calcium Total Bilirubin AST ALT Alkaline Phosphatase Total Protein Albumin Assessment and Plan - Plan 52 yo ambulatory male with chronic B LE lymphedema with chronic wounds Plan Recommend daily aggressive wound care- Wound care following Recommend daily compression- tanja wrap B LE from toes to thighs Continue aggressive management of glucose Psych consult- Homicidal ideation Payton Tellez NP [facility] [phone] - Attending Attestation Agree with above. Pt seen. Classic lymphedema - little role for vascular intervention except compression. Rec wound care consult. No need for amputation at present. Will consult psych given vocalized homicidal ideations.
[2018-02-26] MEDS: Vancomycin Inj 1,500 MG in Sodium Chlor 0.9% Inj 500 ML IV.SIG SCH (08:52)
[2018-02-26] MEDS: Sodium Hypochlorite 0.25% Top Sol 500 ML Bottle TOPICAL SCH (08:52)
[2018-02-26] MEDS: Insulin NovoLOG Aspart Correctional Sugar Inj SQ SCH ×4 (08:53→22:25)
--- NOTE | 2018-02-26 12:10 | P.CONID ---
History of Present Illness Service: ID Consult date: 02/26/18 Requesting Physician: Luis Miner Reason for Consult: BLE cellulitis Primary Care Provider: Marquez Solo Family Provider: Marquez Solo Chief Complaint: Bilateral lower extremity swelling History of Present Illness: Morbidly obese 52 yo male with long standing (decades of years) of chronic venostasis and chronic verrucous changes of B/l lower legs and draining wounds Not following anywhere formally presented with worsening drainage, pain no fevers, no leukocytosis Started on vancomycin Review of Systems All other systems reviewed negative except as stated in HPI PMFSH - History History Provided By: Patient - Medical / Surgical Hx Neg / Unobtainable Medical Problems Denied: Yes - Medical History Medical History: Medical History (Last Reviewed 04/21/18 @ 10:12 by Shayna Ledbetter MD) H/O: varicose veins Lymphedema Obesity Type II diabetes mellitus - Surgical History Surgical History: Surgical History (Last Reviewed 04/21/18 @ 10:12 by Shayna Ledbetter MD) H/O varicose vein stripping - Family History Family History: Family History (Last Updated 04/21/18 @ 10:12 by Shayna Ledbetter MD) Other No pertinent family history - Social History I have reviewed the patient's Social History: Yes - Tobacco History Second Hand Smoke Exposure: Yes Tobacco Use In Past 30 Days: Yes Smoking Status: Current every day smoker Tobacco Type: Cigarettes - Alcohol History How Often Do You Have a Drink Containing Alcohol: Never - Substance Use History Substance History: Active Abuse - Substance Use Type Marijuana Status: Active Route Used: Inhalation Frequency: 1 oz/wk Last Used: 02/25/18 Reason for Use: Calm Down, Feels Good Comment: helps with pain - Travel History Recent Travel in the [place] Within the Last 8 Weeks: No Recent Travel Out of the Country Within the Last 8 Weeks: No - Immunization History Tetanus Immunization: <5 Years Tetanus Immunization Year if Known: 2017 Hx Influenza Vaccine This Season: Yes Medications and Allergies Active Medications: Active Medications Acetaminophen (Tylenol) 650 mg PO Q4H PRN PRN Reason: Temp > 100.4 Al Hydroxide/Mg Hydroxide (Milk Of Magnesia Liq) 30 ml PO Q12H PRN PRN Reason: Mild Constipation Dextrose (D50w Vial) 50 ml IV.PUSH UNSCH PRN PRN Reason: PER HYPOGLYCEMIA PROTOCOL Glucagon (Glucagon Inj) 1 mg OTHER PRN PRN PRN Reason: for Hypoglycemia Protocol Hydromorphone HCl (Dilaudid Pf Inj) 1 mg IV.PUSH Q6HR PRN PRN Reason: BREAKTHROUGH PAIN Last Admin: 02/26/18 10:27 Dose: 1 mg Vancomycin HCl 1,500 mg/ (Sodium Chloride) 515 mls @ 250 mls/hr IV.SIG Q24H [facility] Last Infusion: 02/26/18 11:21 Dose: Infused Cefepime HCl 2,000 mg/ Sodium (Chloride) 100 mls @ 200 mls/hr IV.SIG Q12H [facility] Last Infusion: 02/26/18 07:16 Dose: Infused Insulin Aspart (Novolog Insulin Correctional Sugar Inj) 0 unit SQ ACHS [facility]; Protocol Last Admin: 02/26/18 08:53 Dose: 9 unit Ketorolac Tromethamine (Toradol Inj) 30 mg IV.PUSH Q6H PRN PRN Reason: PAIN 6-10;IF UNABLE TO TAKE PO Stop: 03/02/18 18:33 Last Admin: 02/26/18 01:46 Dose: 30 mg Naloxone HCl (Narcan Inj) 0.4 mg IV.PUSH UNSCH PRN PRN Reason: SEE LABEL COMMENTS Ondansetron HCl (Zofran Inj) 4 mg IV.PUSH Q6H PRN PRN Reason: NAUSEA OR VOMITING Pregabalin (Lyrica) 50 mg PO TID [facility] Last Admin: 02/26/18 08:51 Dose: 50 mg Senna/Docusate Sodium (Margaux-Colace) 1 tab PO BID [facility] Last Admin: 02/26/18 08:51 Dose: Not Given Sennosides (Senokot) 17.2 mg PO Q12H PRN PRN Reason: Moderate Constipation Sodium Chloride (Ns Flush) 2 ml IV.FLUSH BID [facility] Last Admin: 02/26/18 08:54 Dose: 2 ml Sodium Chloride (Ns Flush) 2 ml IV.FLUSH PRN PRN PRN Reason: FLUSH AFTER USING IV ACCESS Sodium Hypochlorite (Dakin's 0.25% Top Soln) 0 ml TOPICAL DAILY [facility] Last Admin: 02/26/18 08:52 Dose: 1 ml Tramadol HCl (Ultram) 50 mg PO Q4H PRN PRN Reason: PAIN SCALE 3 TO 5 Allergies Allergy/AdvReac Type Severity Reaction Status Date / Time penicillin G Allergy Intermediate HIVES Verified 02/25/18 09:52 morphine Allergy Mild Dizziness Verified 02/25/18 09:52 Home Medications Medication Instructions Recorded Confirmed Type pregabalin [Lyrica] 150 mg PO BID 02/25/18 02/25/18 History Exam Vital signs: Vital Signs 02/25/18 12:53 02/25/18 17:00 02/25/18 20:00 Temperature 98.1 F 98.1 F Pulse Rate 112 H 96 H Respiratory Rate 17 18 Blood Pressure 121/73 139/70 Pulse Oximetry 93 L 93 L 02/26/18 00:00 02/26/18 01:10 02/26/18 08:00 Temperature 97.0 F L 97.0 F L 98.4 F Pulse Rate 99 H 99 H 91 H Respiratory Rate 18 18 17 Blood Pressure 136/108 H 136/108 H 149/73 H Pulse Oximetry 92 L 92 L 97 Intake & Output 02/25/18 02/26/18 02/26/18 18:59 06:59 18:59 Intake Total 2715 / 2715 Balance 2715 / 2715 Weight 183.3 kg Intake: IV 2715 / 2715 Maxipime Inj 2,000 MG In NS Inj 100 / 100 100 ML @ 200 mls/hr IV.SIG Q12H [facility] Rx#:[id number] Vancomycin Inj 1,500 MG In NS 515 / 515 Inj 500 ML @ 250 mls/hr IV.SIG Q24H [facility] Rx#:[id number] Other: # Voids 2 Date of Last Bowel Movement 02/24/18 02/24/18 Weight On Admission 158.75 kg - Constitutional no acute distress, morbidly obese - Routine HEENT Exam Head: Present: normocephalic, atraumatic Eye: Present: EOMI ENT: Present: mucous membranes moist, oropharynx clear - Routine Neck Exam Present: supple, full ROM - Routine Respiratory Exam Present: decreased breath sounds, CTA bilaterally, distant breath sounds - Routine Cardiovascular Exam Present: RRR, S1, S2 Comments: no murmurs, rubs or gallops - Routine Abdominal Exam Present: soft, normoactive bowel sounds Comments: no organomegaly or masses - Routine Extremities Exam Comments: Massively edematous BLE with extensive veruccous pachydermia and large wounds with [id number] tender surface and heavy foul smelling drainage very tender to palpation - Routine Skin Exam Present: dry, warm, lesions (as above) - Routine Neurological Exam Present: alert, oriented X3, moving all extremities, vision grossly intact, hearing grossly intact, normal speech - Routine Psychiatric Exam Present: normal affect, cooperative Results - Labs CBC & Chem 7: 03/01/18 06:19 03/01/18 06:19 Labs: Laboratory Results - last 24 hr 02/25/18 02/25/18 02/25/18 11:46 15:18 16:29 WBC RBC Hgb Hct MCV MCH MCHC RDW Plt Count MPV Neut % (Auto) Lymph % (Auto) [place] % (Auto) Eos % (Auto) Baso % (Auto) Neut # (Auto) Lymph # (Auto) [place] # (Auto) Eos # (Auto) Baso # (Auto) WBC Differential Differential Comment Sodium Potassium Chloride Carbon Dioxide Anion Gap BUN Creatinine Estimated GFR POC Glucose 364 H 431 H Random Glucose Lactic Acid 1.3 Calcium 02/25/18 02/26/18 02/26/18 20:00 05:33 05:33 WBC 7.7 RBC 5.00 Hgb 16.6 Hct 48.2 MCV 96.3 MCH 33.1 MCHC 34.4 RDW 13.8 Plt Count 263 MPV 7.0 Neut % (Auto) 66.1 Lymph % (Auto) 23.3 [place] % (Auto) 8.5 H Eos % (Auto) 1.7 Baso % (Auto) 0.4 Neut # (Auto) 5.1 Lymph # (Auto) 1.8 [place] # (Auto) 0.7 Eos # (Auto) 0.1 Baso # (Auto) 0.0 WBC Differential . Differential Comment Auto diff final Sodium 138 Potassium 4.1 Chloride 102 Carbon Dioxide 29.9 Anion Gap 6 BUN 21 H Creatinine 1.24 Estimated GFR 61 L POC Glucose 352 H Random Glucose 300 H D Lactic Acid Calcium 8.4 L 02/26/18 02/26/18 07:50 10:30 WBC RBC Hgb Hct MCV MCH MCHC RDW Plt Count MPV Neut % (Auto) Lymph % (Auto) [place] % (Auto) Eos % (Auto) Baso % (Auto) Neut # (Auto) Lymph # (Auto) [place] # (Auto) Eos # (Auto) Baso # (Auto) WBC Differential Differential Comment Sodium Potassium Chloride Carbon Dioxide Anion Gap BUN Creatinine Estimated GFR POC Glucose 355 H 306 H Random Glucose Lactic Acid Calcium Assessment and Plan - Plan BLE chronic venstasis Infected venostatsis ulcers b/l lower legs NMorbid obesity This is very severe, chronic long standing case Pt claims PCN allergy, but told me he never had PCN himself ,but multiple family members suffered PCN reactions and therefore he refuses PCN cont vancomycin Flaygul Cefepime fu clx Local care Weight reduction and edema controll in a long run
--- NOTE | 2018-02-26 12:59 | P.PNFP ---
Subjective Interval history: Patient seen on medical rounds with the resident team this morning. He states that he is feeling "chilled" and that he is extremely hungry at this time. He continues to have drainage and pain from his bilateral lower extremities. Wound care has evaluated patient and his lower extremities are wrapped at this time. He denies fevers, denies chest pain, denies nausea or vomiting, denies diarrhea, denies any new pains. In summary this is a 52-year-old male with a long-standing history of venous stasis and lymphedema as well as neuropathy presenting with progressive swelling of his legs with drainage from open wounds. He does not follow with wound management at this time, states that he previously did but does not believe they were treating him appropriately. He has been living in a storage unit and having a friend wrap his legs. Outpatient, he states he has been on cephalexin to prevent infection. Past medical lymphedema DM Neuropathy Past surgical Varicose vein removal b/l ex lap Past family father:Leg problems Mother:Unknown Social: Lives in a storage unit EtOH: None Smokin.5 pd for 25 years drugs: marijuana "medical" LSD previously Results - Labs Result diagrams: 02/26/18 05:33 02/26/18 05:33 Abnormal lab results 02/25/18 02/25/18 02/26/18 Range/Units 16:29 20:00 05:33 [place] % (Auto) 8.5 H (0.0-8.0) % BUN (7-18) mg/dL Estimated GFR (>89) mL/min POC Glucose 431 H 352 H (68-110) mg/dl Random Glucose (74-106) mg/dL Calcium (8.5-10.1) mg/dL 02/26/18 02/26/18 02/26/18 Range/Units 05:33 07:50 10:30 [place] % (Auto) (0.0-8.0) % BUN 21 H (7-18) mg/dL Estimated GFR 61 L (>89) mL/min POC Glucose 355 H 306 H (68-110) mg/dl Random Glucose 300 H D (74-106) mg/dL Calcium 8.4 L (8.5-10.1) mg/dL Short CBC 02/26/18 Range/Units 05:33 WBC 7.7 (4.0-11.0) th/mm3 Hgb 16.6 (13.0-17.0) gm/dL Hct 48.2 (39.0-51.0) % Plt Count 263 (150-450) th/mm3 [facility] 02/26/18 05:33 Sodium 138 Potassium 4.1 Chloride 102 Carbon Dioxide 29.9 BUN 21 H Creatinine 1.24 Calcium 8.4 L Physical Exam Vital signs: Vital Signs 02/25/18 12:53 02/25/18 17:00 02/25/18 20:00 Temperature 98.1 F 98.1 F Pulse Rate 112 H 96 H Respiratory Rate 17 19 18 Blood Pressure 121/73 139/70 Pulse Oximetry 93 L 93 L 02/26/18 00:00 02/26/18 01:10 02/26/18 08:00 Temperature 97.0 F L 97.0 F L 98.4 F Pulse Rate 99 H 99 H 91 H Respiratory Rate 18 18 17 Blood Pressure 136/108 H 136/108 H 149/73 H Pulse Oximetry 92 L 92 L 97 Intake & Output 02/25/18 02/26/18 02/26/18 18:59 06:59 18:59 Intake Total 2715 / 2715 Balance 2715 / 2715 Weight 183.3 kg Intake: IV 2715 / 2715 Maxipime Inj 2,000 MG In NS Inj 100 / 100 100 ML @ 200 mls/hr IV.SIG Q12H [facility] Rx#:[id number] Vancomycin Inj 1,500 MG In NS 515 / 515 Inj 500 ML @ 250 mls/hr IV.SIG Q24H [facility] Rx#:[id number] Other: # Voids 2 Date of Last Bowel Movement 02/24/18 02/24/18 Weight On Admission 158.75 kg Narrative: GENERAL: Morbidly obese male sitting up in bed, obviously agitated SKIN: Bilateral lower extremities wrapped in gauze but still draining serous/ yellow fluid from the left. Exposed skin shows significant hyperkeratosis and thickening/darkening of the skin. Both lower extremities are tender to touch. CARDIOVASCULAR: Regular rate and rhythm. RESPIRATORY: No accessory muscle use. Clear to auscultation. Breath sounds equal bilaterally. GASTROINTESTINAL: Obese, soft, nondistended NEUROLOGICAL: Awake and alert. Assessment and Plan - Assessment (1) Lymphedema Code(s): I89.0 - Lymphedema, not elsewhere classified Status: Acute Plan: Chronic lymphedema with venous stasis and hyperkeratosis Continue IV antibiotics and infectious disease culture pending: -Vancomycin 1500 mg IV every 24 hours -Cefepime 2 g IV to 12 hours Wound cultures pending Blood cultures pending Wound management to see the patient and assist with dressing Vascular surgery has evaluated patient and recommend continued compression Pain control with Ada on a scale basis and Dilaudid for breakthrough pain Toradol scheduled (2) Diabetes Code(s): E11.9 - Type 2 diabetes mellitus without complications Status: Acute Plan: History of diabetes, poorly controlled -Monitor blood glucose -Follow-up A1c -Low-dose sliding scale insulin (3) Neuropathy Code(s): G62.9 - Polyneuropathy, unspecified Status: Acute Plan: History of neuropathy, reportedly controlled with Lyrica -Lyrica 50 mg p.o. 3 times daily (4) Agitation Code(s): R45.1 - Restlessness and agitation Status: Acute Plan: Patient was very agitated and aggressive with the vascular consultation He did threaten several members of the medical team and previous members of his medical care Psychiatry consult was placed given his aggression and threats (5) Nutrition, metabolism, and development symptoms Code(s): R63.8 - Other symptoms and signs concerning food and fluid intake Status: Acute Plan: Fluids: Tolerating p.o. Electrolytes: Monitor and replete as needed Nutrition: Tolerating p.o. diabetic diet
--- NOTE | 2018-02-26 15:02 | P.CONPSY ---
Provisional Diagnosis Admission Date: February 25, 2018 12:57 Wilber I.: Adjustment disorder with disturbance of conduct History of Present Illness Service: Psychiatry Primary Care Provider: Marquez Solo [facility] Provider: Marquez Solo Chief Complaint: Bilateral lower extremity swelling History of Present Illness: The patient is a 52-year-old man, self-reported homeless, single, he denies psychiatric history, denies psychiatric hospitalizations, denies suicidal attempts, even though he has been on the [place] act "for misunderstandings" with medical history diabetes, neuropathy, a long-standing history of venous stasis and lymphedema as well as neuropathy presenting with progressive swelling of his legs with drainage from open wounds. He does not follow with wound management at this time, states that he previously did but does not believe they were treating him appropriately. He has been living in a storage unit and having a friend wrap his legs. Outpatient, he states he has been on cephalexin to prevent infection. Noted to psychiatry due to homicidal ideations. On my psychiatric evaluation the patient is irritable, initially stated that he does not need to speak with a psychiatrist. But he was redirectable. The patient explains that he does not really want to kill anybody , he is just upset and frustrated for his medical conditions "and the way that the doctors are treating me". The patient reports feeling much better now, he denies depressive symptoms, he denies anxiety, denies suicidal enemas ideation, denies visual and auditory hallucinations. The patient is quite talkative and circumstantial, needed to be redirected multiple times. He denies the use of drugs and alcohol. He reports that he used to be a user of LSD in the past. [facility] - History History Provided By: Patient - Medical / Surgical Hx Neg / Unobtainable Medical Problems Denied: Yes - Medical History Medical History: Medical History (Last Reviewed 02/26/18 @ 08:38 by Payton Tellez) H/O: varicose veins Lymphedema Obesity Type II diabetes mellitus - Surgical History Surgical History: Surgical History (Last Reviewed 02/26/18 @ 08:38 by Payton Tellez) H/O varicose vein stripping - Tobacco History Second Hand Smoke Exposure: Yes Tobacco Use In Past 30 Days: Yes Smoking Status: Current every day smoker Tobacco Type: Cigarettes - Alcohol History How Often Do You Have a Drink Containing Alcohol: Never - Substance Use History Substance History: Active Abuse - Substance Use Type Marijuana Status: Active Route Used: Inhalation Frequency: 1 oz/wk Last Used: 02/25/18 Reason for Use: Calm Down, Feels Good Comment: helps with pain - Travel History Recent Travel in the [place] Within the Last 8 Weeks: No Recent Travel Out of the Country Within the Last 8 Weeks: No - Immunization History Tetanus Immunization: <5 Years Tetanus Immunization Year if Known: 2016 Hx Influenza Vaccine This Season: Yes Medications and Allergies Active Medications: Active Medications Acetaminophen (Tylenol) 650 mg PO Q4H PRN PRN Reason: Temp > 100.4 Hydrocodone Bitart/Acetaminophen ([place] 10/325) 1 tab PO Q4H PRN PRN Reason: PAIN SCALE 6 TO 10 Hydrocodone Bitart/Acetaminophen ([place] 5/325) 1 tab PO Q4H PRN PRN Reason: PAIN SCALE 3 TO 5 Al Hydroxide/Mg Hydroxide (Milk Of Magnesia Liq) 30 ml PO Q12H PRN PRN Reason: Mild Constipation Dextrose (D50w Vial) 50 ml IV.PUSH UNSCH PRN PRN Reason: PER HYPOGLYCEMIA PROTOCOL Glucagon (Glucagon Inj) 1 mg OTHER PRN PRN PRN Reason: for Hypoglycemia Protocol Hydromorphone HCl (Dilaudid Pf Inj) 1 mg IV.PUSH Q6HR PRN PRN Reason: BREAKTHROUGH PAIN Last Admin: 02/26/18 10:27 Dose: 1 mg Vancomycin HCl 1,500 mg/ (Sodium Chloride) 515 mls @ 250 mls/hr IV.SIG Q24H ARMINDA Last Infusion: 02/26/18 11:21 Dose: Infused Cefepime HCl 2,000 mg/ Sodium (Chloride) 100 mls @ 200 mls/hr IV.SIG Q12H ARMINDA Last Infusion: 02/26/18 14:33 Dose: Infused Metronidazole/Sodium Chloride (Flagyl 500 Mg Inj) 100 mls @ 100 mls/hr IV.SIG Q6H ARMINDA Last Admin: 02/26/18 14:35 Dose: 100 mls/hr Insulin Aspart (Novolog Insulin Correctional Sugar Inj) 0 unit SQ ACHS ARMINDA; Protocol Last Admin: 02/26/18 12:33 Dose: 7 unit Ketorolac Tromethamine (Toradol Inj) 30 mg IV.PUSH Q6H PRN PRN Reason: PAIN SCALE 1 TO 2 Stop: 03/02/18 18:33 Last Admin: 02/26/18 01:46 Dose: 30 mg Naloxone HCl (Narcan Inj) 0.4 mg IV.PUSH UNSCH PRN PRN Reason: SEE LABEL COMMENTS Ondansetron HCl (Zofran Inj) 4 mg IV.PUSH Q6H PRN PRN Reason: NAUSEA OR VOMITING Pregabalin (Lyrica) 50 mg PO TID [facility] Last Admin: 02/26/18 12:32 Dose: 50 mg Senna/Docusate Sodium (Margaux-Colace) 1 tab PO BID [facility] Last Admin: 02/26/18 08:51 Dose: Not Given Sennosides (Senokot) 17.2 mg PO Q12H PRN PRN Reason: Moderate Constipation Sodium Chloride (Ns Flush) 2 ml IV.FLUSH BID [facility] Last Admin: 02/26/18 08:54 Dose: 2 ml Sodium Chloride (Ns Flush) 2 ml IV.FLUSH PRN PRN PRN Reason: FLUSH AFTER USING IV ACCESS Sodium Hypochlorite (Dakin's 0.25% Top Soln) 0 ml TOPICAL DAILY [facility] Last Admin: 02/26/18 08:52 Dose: 1 ml Allergies Allergy/AdvReac Type Severity Reaction Status Date / Time penicillin G Allergy Intermediate HIVES Verified 02/25/18 09:52 morphine Allergy Mild Dizziness Verified 02/25/18 09:52 Home Medications Medication Instructions Recorded Confirmed Type cephalexin [Keflex] 750 mg PO TID 02/25/18 02/25/18 History hydrocodone-acetaminophen 2 tab PO Q6H PRN 02/25/18 02/25/18 History pregabalin [Lyrica] 150 mg PO BID 02/25/18 02/25/18 History Exam Vital signs: Vital Signs 02/25/18 17:00 02/25/18 20:00 02/26/18 00:00 Temperature 98.1 F 98.1 F 97.0 F L Pulse Rate 112 H 96 H 99 H Respiratory Rate 18 18 Blood Pressure 121/73 139/70 136/108 H Pulse Oximetry 93 L 93 L 92 L 02/26/18 01:10 02/26/18 08:00 02/26/18 12:00 Temperature 97.0 F L 98.4 F 97.8 F Pulse Rate 99 H 91 H 97 H Respiratory Rate 18 17 18 Blood Pressure 136/108 H 149/73 H 138/81 Pulse Oximetry 92 L 97 96 Intake & Output 02/25/18 02/26/18 02/26/18 18:59 06:59 18:59 Intake Total 2815 / 2815 Balance 2815 / 2815 Weight 183.3 kg Intake: IV 2815 / 2815 Maxipime Inj 2,000 MG In NS Inj 200 / 200 100 ML @ 200 mls/hr IV.SIG Q12H ARMINDA Rx#:[id number] Vancomycin Inj 1,500 MG In NS 515 / 515 Inj 500 ML @ 250 mls/hr IV.SIG Q24H ARMINDA Rx#:[id number] Other: # Voids 2 Date of Last Bowel Movement 02/24/18 02/24/18 Weight On Admission 158.75 kg Mental Status Examination Appearance: Appropriate Consciousness: Alert Orientation: x4 Motor Activity: Normal gait Speech: Unremarkable Language: Adequate Fund of Knowledge: Adequate Memory: Unremarkable Mood: Appropriate Affect: Appropriate Thought Process & Associations: Intact Thought Content: Appropriate Hallucination Type: None Delusion Type: None Suicidal Ideation: No Suicidal Plan: No Suicidal Intention: No Homicidal Ideation: No Homicidal Plan: No Homicidal Intention: No Insight: Fair Judgment: Impulsive Assessment and Plan - Assessment (1) Adjustment disorder with disturbance of conduct Code(s): F43.24 - Adjustment disorder with disturbance of conduct Status: Acute - Plan Plan: Estimated LOS: [] days The patient now denies homicidal ideation. He states that he feels much better , but he was just expressing frustration in the context of his medical illnesses and feeling abandoned and rejected by doctors. The patient denies depressive symptoms at this moment, denies anxiety, denies cherry and psychosis. He is logical, coherent and relevant. Denies suicidal ideation, visual and auditory hallucinations. Is fully oriented 3. He does not meet criteria for involuntary psychiatric admission. Is clear that recent homicidal statement was most probably the result of frustration and adjustment disorder with disturbance of conduct. Also clinically significant cluster B traits are present. Justification for Continued Inpatient Stay: No admission is indicated.
[2018-02-26 17:16] LABS: Hemoglobin A1c 12.6 % (4.3-6.0)
[2018-02-27 06:04] LABS: Baso % (Auto) 0.4 % (0.0-2.0); Eos # (Auto) 0.2 th/mm3 (0.0-0.4); Eos % (Auto) 2.1 % (0.0-4.0); Hemoglobin 15.9 gm/dL (13.0-17.0); Lymph # (Auto) 1.5 th/mm3 (1.0-4.8); Lymph % (Auto) 20.3 % (9.0-44.0); Mean Corpuscular HGB Conc 33.8 % (32.0-36.0); Mean Corpuscular Hemoglobin 32.3 pg (27.0-34.0); Mean Corpuscular Volume 95.6 fL (80.0-100.0); Mean Platelet Volume 7.2 fL (7.0-11.0); Mono # (Auto) 0.7 th/mm3 (0.0-0.9); Mono % (Auto) 9.4 % (0.0-8.0); Neut % (Auto) 67.8 % (16.0-70.0); Platelet Count 262 th/mm3 (150-450); Red Blood Count 4.91 mil/mm3 (4.50-5.90); Red Cell Distribution Width 13.7 % (11.6-17.2); White Blood Count 7.4 th/mm3 (4.0-11.0)
[2018-02-27 06:25] LABS: Anion Gap 8 meq/L (5-15); Blood Urea Nitrogen 17 mg/dL (7-18); Calcium 8.2 mg/dL (8.5-10.1); Carbon Dioxide 27.2 meq/L (21.0-32.0); Chloride 105 meq/L (98-107); Glomerular Filtration Rate Greater Than 89 mL/min (>89); Glucose,Random 245 mg/dL (74-106); Potassium 3.8 meq/L (3.5-5.1); Sodium 140 meq/L (136-145)
[2018-02-27] MEDS: Vancomycin Inj 1,500 MG in Sodium Chlor 0.9% Inj 500 ML IV.SIG SCH (08:18)
[2018-02-27] MEDS: Pregabalin 25 MG Capsule PO SCH ×3 (08:19→19:17)
[2018-02-27] MEDS: Insulin NovoLOG Aspart Correctional Sugar Inj SQ SCH ×3 (08:19→19:22)
[2018-02-27] MEDS: Senna/Docusate Sodium 8.6/50 MG Tablet PO SCH (08:20)
[2018-02-27] MEDS: Ketorolac Inj 30 MG/ML (IVP) Vial IV.PUSH PRN ×2 (10:29→19:18)
[2018-02-27] MEDS: HYDROmorphone PF Inj 2 MG/ML Vial IV.PUSH PRN ×4 (10:29→21:31)
--- NOTE | 2018-02-27 11:35 | P.PNFP ---
Subjective Interval history: Patient seen and examined this morning. Denies nausea, vomiting, fever, chills, abdominal pain, chest pain, shortness of breath, changes in bowel or bladder habits. No other medical complaints at this time. Results - Labs Result diagrams: 02/27/18 04:10 02/27/18 04:10 Abnormal lab results 02/26/18 02/26/18 02/26/18 Range/Units 05:33 16:32 22:16 Major % (Auto) (0.0-8.0) % POC Glucose 302 H 341 H (68-110) mg/dl Random Glucose (74-106) mg/dL Hemoglobin A1c 12.6 H (4.3-6.0) % Calcium (8.5-10.1) mg/dL 02/27/18 02/27/18 02/27/18 Range/Units 04:10 04:10 07:43 Major % (Auto) 9.4 H (0.0-8.0) % POC Glucose 237 H (68-110) mg/dl Random Glucose 245 H (74-106) mg/dL Hemoglobin A1c (4.3-6.0) % Calcium 8.2 L (8.5-10.1) mg/dL Short CBC 02/27/18 Range/Units 04:10 WBC 7.4 (4.0-11.0) th/mm3 Hgb 15.9 (13.0-17.0) gm/dL Hct 47.0 (39.0-51.0) % Plt Count 262 (150-450) th/mm3 BMP 02/27/18 04:10 Sodium 140 Potassium 3.8 Chloride 105 Carbon Dioxide 27.2 BUN 17 Creatinine 0.86 Calcium 8.2 L Physical Exam Vital signs: Vital Signs 02/26/18 12:00 02/26/18 16:00 02/26/18 20:00 Temperature 97.8 F 98.3 F 97.5 F L Pulse Rate 97 H 91 H 113 H Respiratory Rate 18 18 19 Blood Pressure 138/81 114/71 146/69 H Pulse Oximetry 96 94 L 94 L 02/27/18 00:00 02/27/18 08:00 Temperature 98.2 F 97.8 F Pulse Rate 111 H 98 H Respiratory Rate 19 17 Blood Pressure 112/60 128/75 Pulse Oximetry 94 L 96 Intake & Output 02/26/18 02/27/18 02/27/18 18:59 06:59 18:59 Intake Total 4075 / 4075 780 / 780 Balance 4075 / 4075 780 / 780 Intake: IV 2915 / 2915 300 / 300 Maxipime Inj 2,000 MG In NS Inj 200 / 200 100 / 100 100 ML @ 200 mls/hr IV.SIG Q12H ARMINDA Rx#:[id number] Vancomycin Inj 1,500 MG In NS 515 / 515 Inj 500 ML @ 250 mls/hr IV.SIG Q24H ARMINDA Rx#:[id number] Flagyl 500 MG Inj 100 ML @ 100 100 / 100 200 / 200 mls/hr IV.SIG Q6H ARMINDA Rx#: [id number] Oral 1160 / 1160 480 / 480 Other: # Voids 4 3 Date of Last Bowel Movement 02/24/18 # Bowel Movements 1 Narrative: GENERAL: Morbidly obese male sitting up in bed, obviously agitated SKIN: Bilateral lower extremities wrapped in gauze but still draining serous/ yellow fluid from the left. Exposed skin shows significant hyperkeratosis and thickening/darkening of the skin. Both lower extremities are tender to touch. CARDIOVASCULAR: Regular rate and rhythm. RESPIRATORY: No accessory muscle use. Clear to auscultation. Breath sounds equal bilaterally. GASTROINTESTINAL: Obese, soft, nondistended NEUROLOGICAL: Awake and alert. Assessment and Plan - Assessment (1) Lymphedema Code(s): I89.0 - Lymphedema, not elsewhere classified Status: Acute Plan: Chronic lymphedema with venous stasis and hyperkeratosis Continue IV antibiotics and infectious disease culture pending: -Vancomycin 1500 mg IV every 24 hours -Cefepime 2 g IV to 12 hours -Flagyl 500 Q6 Wound cultures with proteus, staph, group D enterococcus Blood cultures NGTD Wound management to see the patient and assist with dressing Vascular surgery has evaluated patient and recommend continued compression Pain control with [place] on a scale basis and Dilaudid for breakthrough pain Toradol scheduled (2) Diabetes Code(s): E11.9 - Type 2 diabetes mellitus without complications Status: Acute Plan: History of diabetes, poorly controlled -Monitor blood glucose -Follow-up A1c -Low-dose sliding scale insulin (3) Neuropathy Code(s): G62.9 - Polyneuropathy, unspecified Status: Acute Plan: History of neuropathy, reportedly controlled with Lyrica -Lyrica 50 mg p.o. 3 times daily (4) Agitation Code(s): R45.1 - Restlessness and agitation Status: Acute Plan: Patient was very agitated and aggressive with the vascular consultation He did threaten several members of the medical team and previous members of his medical care Psychiatry consult reports threats likely 2/2 frustration. Not an involuntary candidate. (5) Nutrition, metabolism, and development symptoms Code(s): R63.8 - Other symptoms and signs concerning food and fluid intake Status: Acute Plan: Fluids: Tolerating p.o. Electrolytes: Monitor and replete as needed Nutrition: Tolerating p.o. diabetic diet
[2018-02-27] MEDS: Sodium Hypochlorite 0.25% Top Sol 500 ML Bottle TOPICAL SCH (19:22)
[2018-02-28] MEDS: Ketorolac Inj 30 MG/ML (IVP) Vial IV.PUSH PRN ×2 (00:50→05:52)
[2018-02-28] MEDS: HYDROmorphone PF Inj 2 MG/ML Vial IV.PUSH PRN ×3 (03:28→16:47)
[2018-02-28] MEDS: Senna/Docusate Sodium 8.6/50 MG Tablet PO SCH ×3 (05:40→23:44)
[2018-02-28] MEDS: Insulin NovoLOG Aspart Correctional Sugar Inj SQ SCH ×5 (05:44→23:54)
--- NOTE | 2018-02-28 07:38 | P.PNFP ---
Subjective Interval history: Mr Connell was seen on rounds today sitting up in chair. He endorses continued leg pain. Reports he had a bowel movement yesterday. Denies any chest pain, nausea, vomiting, difficulty breathing, abdominal pain, diarrhea, dysuria. Results - Labs Result diagrams: 02/27/18 04:10 02/27/18 04:10 Abnormal lab results 02/27/18 02/27/18 02/27/18 Range/Units 07:43 11:29 18:43 POC Glucose 237 H 269 H 263 H (68-110) mg/dl 02/27/18 Range/Units 21:17 POC Glucose 262 H (68-110) mg/dl Physical Exam Vital signs: Vital Signs 02/27/18 08:00 02/27/18 12:00 02/27/18 16:00 Temperature 97.8 F 97.8 F 97.7 F Pulse Rate 98 H 109 H 87 Respiratory Rate 17 17 17 Blood Pressure 128/75 133/70 124/69 Pulse Oximetry 96 96 95 02/27/18 19:45 02/27/18 20:00 02/27/18 22:00 Temperature 98.5 F Pulse Rate 94 H Respiratory Rate 20 20 20 Blood Pressure 145/75 H Pulse Oximetry 95 02/28/18 00:00 02/28/18 01:20 02/28/18 01:46 Temperature 98.6 F Pulse Rate 103 H Respiratory Rate 19 20 20 Blood Pressure 156/79 H Pulse Oximetry 95 02/28/18 02:15 02/28/18 04:00 Temperature Pulse Rate Respiratory Rate 20 20 Blood Pressure Pulse Oximetry Intake & Output 02/27/18 02/28/18 02/28/18 18:59 06:59 18:59 Intake Total 1580 / 1580 1615 / 1615 Balance 1580 / 1580 1615 / 1615 Intake: IV 300 / 300 815 / 815 Maxipime Inj 2,000 MG In NS Inj 100 / 100 100 / 100 100 ML @ 200 mls/hr IV.SIG Q12H ARMINDA Rx#:[id number] Vancomycin Inj 1,500 MG In NS 515 / 515 Inj 500 ML @ 250 mls/hr IV.SIG Q24H ARMINDA Rx#:[id number] Flagyl 500 MG Inj 100 ML @ 100 200 / 200 200 / 200 mls/hr IV.SIG Q6H ARMINDA Rx#: [id number] Oral 1280 / 1280 800 / 800 Other: # Voids 4 4 # Bowel Movements 2 4 Narrative: GENERAL: Morbidly obese male sitting up in bed, obviously agitated SKIN: Bilateral lower extremities wrapped in gauze but still draining serous/ yellow fluid from the left. Exposed skin shows significant hyperkeratosis and thickening/darkening of the skin. Erythematous rash noted on right groin area, below abdominal fold. CARDIOVASCULAR: Regular rate and rhythm. RESPIRATORY: No accessory muscle use. Clear to auscultation. Breath sounds equal bilaterally. GASTROINTESTINAL: Obese, soft, nondistended. Normoactive bowel sounds NEUROLOGICAL: Awake and alert. Assessment and Plan - Assessment (1) Lymphedema Code(s): I89.0 - Lymphedema, not elsewhere classified Status: Acute Plan: Chronic lymphedema with venous stasis and hyperkeratosis Continue IV antibiotics and infectious disease culture pending: -Vancomycin 1500 mg IV every 24 hours -Cefepime 2 g IV to 12 hours -Flagyl 500 Q6 Wound cultures with proteus, staph, group D enterococcus Blood cultures NGTD Wound management to see the patient and assist with dressing Vascular surgery has evaluated patient and recommend continued compression Pain control with [place] on a scale basis and Dilaudid for breakthrough pain Toradol scheduled (2) Diabetes Code(s): E11.9 - Type 2 diabetes mellitus without complications Status: Acute Plan: History of diabetes, poorly controlled -Monitor blood glucose -Low-dose sliding scale insulin -A1C 12.6 (3) Neuropathy Code(s): G62.9 - Polyneuropathy, unspecified Status: Acute Plan: History of neuropathy, reportedly controlled with Lyrica -Lyrica 50 mg p.o. 3 times daily (4) Agitation Code(s): R45.1 - Restlessness and agitation Status: Acute Plan: Patient was very agitated and aggressive with the vascular consultation He did threaten several members of the medical team and previous members of his medical care Psychiatry consult reports threats likely 2/2 frustration. Not an involuntary candidate. (5) Fungal infection of skin Code(s): B36.9 - Superficial mycosis, unspecified Status: Acute Plan: -Patient has moisturizing and antifungal creams in room. Told to mix them and apply -Nystatin powder to be applied after creams to keep moisture down. (6) Nutrition, metabolism, and development symptoms Code(s): R63.8 - Other symptoms and signs concerning food and fluid intake Status: Acute Plan: Fluids: Tolerating p.o. Electrolytes: Monitor and replete as needed Nutrition: Tolerating p.o. diabetic diet - Assessment and Plan Dr Garcia Discharge Planning: Discussed with case management today. Consideration for possible discharge to a rehab facility. Case management will continue to work on finding placement.
[2018-02-28] MEDS: Vancomycin Inj 1,500 MG in Sodium Chlor 0.9% Inj 500 ML IV.SIG SCH (09:31)
[2018-02-28] MEDS: Pregabalin 25 MG Capsule PO SCH ×3 (09:32→17:06)
[2018-02-28] MEDS: Sodium Hypochlorite 0.25% Top Sol 500 ML Bottle TOPICAL SCH (09:32)
[2018-02-28 10:26] LABS: Hematocrit 46.2 % (39.0-51.0); Hemoglobin 15.9 gm/dL (13.0-17.0); Mean Corpuscular HGB Conc 34.3 % (32.0-36.0); Mean Corpuscular Hemoglobin 33.2 pg (27.0-34.0); Mean Corpuscular Volume 96.6 fL (80.0-100.0); Mean Platelet Volume 6.9 fL (7.0-11.0); Platelet Count 247 th/mm3 (150-450); Red Blood Count 4.78 mil/mm3 (4.50-5.90); Red Cell Distribution Width 13.9 % (11.6-17.2); White Blood Count 5.6 th/mm3 (4.0-11.0)
[2018-02-28 10:56] LABS: Calcium 8.1 mg/dL (8.5-10.1); Carbon Dioxide 24.9 meq/L (21.0-32.0); Potassium 3.9 meq/L (3.5-5.1)
[2018-02-28] MEDS: Nystatin 100,000 UNITS/GM Powder 15 GM Bottle TOPICAL SCH ×3 (13:15→23:44)
[2018-02-28] MEDS ORDERED: Insulin Detemir Inj 1,000 UNIT/10 ML Vial SQ SCH (21:00)
[2018-03-01 07:58] LABS: Hematocrit 49.6 % (39.0-51.0); Hemoglobin 16.5 gm/dL (13.0-17.0); Mean Corpuscular HGB Conc 33.2 % (32.0-36.0); Mean Corpuscular Hemoglobin 32.4 pg (27.0-34.0); Mean Corpuscular Volume 97.5 fL (80.0-100.0); Mean Platelet Volume 7.2 fL (7.0-11.0); Platelet Count 277 th/mm3 (150-450); Red Blood Count 5.09 mil/mm3 (4.50-5.90); Red Cell Distribution Width 13.9 % (11.6-17.2); White Blood Count 6.9 th/mm3 (4.0-11.0)
[2018-03-01 08:11] LABS: Calcium 8.5 mg/dL (8.5-10.1); Carbon Dioxide 25.2 meq/L (21.0-32.0); Potassium 4.1 meq/L (3.5-5.1)
--- NOTE | 2018-03-01 09:08 | P.PNFP ---
Subjective Interval history: Patient seen and examined today. No acute events overnight. Denies nausea, vomiting, fever, chills, don pain, shortness of breath, chest pain. Denied nursing from changing leg wrap because "they don't know what they're doing." Encouraged to allow them to change his dressing. No other complaint today. Results - Labs Result diagrams: 03/01/18 06:19 03/01/18 06:19 Abnormal lab results 02/28/18 02/28/18 02/28/18 Range/Units 09:58 09:58 11:37 MPV 6.9 L (7.0-11.0) fL Chloride (98-107) meq/L BUN 23 H (7-18) mg/dL Estimated GFR 60 L (>89) mL/min POC Glucose 309 H (68-110) mg/dl Random Glucose 277 H (74-106) mg/dL Calcium 8.1 L (8.5-10.1) mg/dL 02/28/18 02/28/18 03/01/18 Range/Units 16:36 23:49 06:19 MPV (7.0-11.0) fL Chloride 108 H (98-107) meq/L BUN (7-18) mg/dL Estimated GFR (>89) mL/min POC Glucose 261 H 255 H (68-110) mg/dl Random Glucose 216 H (74-106) mg/dL Calcium (8.5-10.1) mg/dL 03/01/18 Range/Units 07:24 MPV (7.0-11.0) fL Chloride (98-107) meq/L BUN (7-18) mg/dL Estimated GFR (>89) mL/min POC Glucose 282 H (68-110) mg/dl Random Glucose (74-106) mg/dL Calcium (8.5-10.1) mg/dL Short CBC 02/28/18 03/01/18 Range/Units 09:58 06:19 WBC 5.6 6.9 (4.0-11.0) th/mm3 Hgb 15.9 16.5 (13.0-17.0) gm/dL Hct 46.2 49.6 (39.0-51.0) % Plt Count 247 277 (150-450) th/mm3 BMP 02/28/18 03/01/18 09:58 06:19 Sodium 141 141 Potassium 3.9 4.1 Chloride 107 108 H Carbon Dioxide 24.9 25.2 BUN 23 H 14 Creatinine 1.25 0.89 Calcium 8.1 L 8.5 Physical Exam Vital signs: Vital Signs 02/28/18 12:00 02/28/18 16:00 02/28/18 20:00 Temperature 97.4 F L 97.9 F 98 F Pulse Rate 84 87 91 H Respiratory Rate 21 21 19 Blood Pressure 124/72 138/64 138/67 Pulse Oximetry 93 L 96 92 L 03/01/18 04:56 Temperature Pulse Rate Respiratory Rate 20 Blood Pressure Pulse Oximetry Intake & Output 02/28/18 03/01/18 03/01/18 18:59 06:59 18:59 Intake Total 1914 Balance 1914 Weight 184.6 kg Intake: IV 815 / 815 Maxipime Inj 2,000 MG In NS Inj 100 / 100 100 ML @ 200 mls/hr IV.SIG Q12H ARMINDA Rx#:[id number] Vancomycin Inj 1,500 MG In NS 515 / 515 Inj 500 ML @ 250 mls/hr IV.SIG Q24H ARMINDA Rx#:[id number] Flagyl 500 MG Inj 100 ML @ 100 200 / 200 mls/hr IV.SIG Q6H ARMINDA Rx#: [id number] Oral 1100 / 1100 1999 Other: # Voids 2 4 # Bowel Movements 2 Narrative: GENERAL: Morbidly obese male sitting up in bed, obviously agitated SKIN: Bilateral lower extremities wrapped in gauze but still draining serous/ yellow fluid from the left. Exposed skin shows significant hyperkeratosis and thickening/darkening of the skin. Erythematous rash noted on right groin area, below abdominal fold. CARDIOVASCULAR: Regular rate and rhythm. RESPIRATORY: No accessory muscle use. Clear to auscultation. Breath sounds equal bilaterally. GASTROINTESTINAL: Obese, soft, nondistended. Normoactive bowel sounds NEUROLOGICAL: Awake and alert. Assessment and Plan - Assessment (1) Lymphedema Code(s): I89.0 - Lymphedema, not elsewhere classified Status: Acute Plan: Chronic lymphedema with venous stasis and hyperkeratosis Continue IV antibiotics: -Vancomycin 1500 mg IV every 24 hours -Cefepime 2 g IV to 12 hours -Flagyl 500 Q6 Wound cultures with proteus, staph, group D enterococcus, sensitivities back today, will consider switching to PO antibiotics. Blood cultures NGTD Wound management to see the patient and assist with dressing Vascular surgery has evaluated patient and recommend continued compression Pain control with [place] on a scale basis and Dilaudid for breakthrough pain Toradol scheduled (2) Diabetes Code(s): E11.9 - Type 2 diabetes mellitus without complications Status: Acute Plan: History of diabetes, poorly controlled -Monitor blood glucose -Low-dose sliding scale insulin -A1C 12.6 (3) Neuropathy Code(s): G62.9 - Polyneuropathy, unspecified Status: Acute Plan: History of neuropathy, reportedly controlled with Lyrica -Lyrica 50 mg p.o. 3 times daily (4) Agitation Code(s): R45.1 - Restlessness and agitation Status: Acute Plan: Patient was very agitated and aggressive with the vascular consultation He did threaten several members of the medical team and previous members of his medical care Psychiatry consult reports threats likely 2/2 frustration. Not an involuntary candidate. (5) Fungal infection of skin Code(s): B36.9 - Superficial mycosis, unspecified Status: Acute Plan: -Patient has moisturizing and antifungal creams in room. Told to mix them and apply -Nystatin powder to be applied after creams to keep moisture down. (6) Nutrition, metabolism, and development symptoms Code(s): R63.8 - Other symptoms and signs concerning food and fluid intake Status: Acute Plan: Fluids: Tolerating p.o. Electrolytes: Monitor and replete as needed Nutrition: Tolerating p.o. diabetic diet
[2018-03-01] MEDS: Vancomycin Inj 1,500 MG in Sodium Chlor 0.9% Inj 500 ML IV.SIG SCH (09:19)
[2018-03-01] MEDS: Pregabalin 25 MG Capsule PO SCH ×3 (09:20→17:11)
[2018-03-01] MEDS: Sodium Hypochlorite 0.25% Top Sol 500 ML Bottle TOPICAL SCH (09:21)
[2018-03-01] MEDS: Nystatin 100,000 UNITS/GM Powder 15 GM Bottle TOPICAL SCH ×4 (09:22→22:26)
[2018-03-01] MEDS: Insulin NovoLOG Aspart Correctional Sugar Inj SQ SCH ×4 (09:23→22:54)
[2018-03-01] MEDS: Senna/Docusate Sodium 8.6/50 MG Tablet PO SCH ×2 (09:25→22:25)
[2018-03-01] MEDS: Insulin Detemir Inj 1,000 UNIT/10 ML Vial SQ SCH (22:52)
[2018-03-02] MEDS: Insulin NovoLOG Aspart Correctional Sugar Inj SQ SCH ×4 (08:32→22:05)
[2018-03-02] MEDS: Sodium Hypochlorite 0.25% Top Sol 500 ML Bottle TOPICAL SCH (08:33)
[2018-03-02] MEDS: Pregabalin 25 MG Capsule PO SCH ×3 (08:34→17:28)
[2018-03-02] MEDS: Vancomycin Inj 1,500 MG in Sodium Chlor 0.9% Inj 500 ML IV.SIG SCH (08:35)
[2018-03-02] MEDS: Nystatin 100,000 UNITS/GM Powder 15 GM Bottle TOPICAL SCH ×4 (08:39→22:06)
[2018-03-02] MEDS: Senna/Docusate Sodium 8.6/50 MG Tablet PO SCH ×2 (08:39→22:06)
--- NOTE | 2018-03-02 11:06 | P.PNFP ---
Subjective Interval history: Patient seen and examined this morning. No acute events overnight. Pt reports no new concerns. States he is willing to go to rehab for further treatment. Denies any fever/chills, chest pain, SOB, abdominal pain. <Juan Cortés - 03/02/18 11:06> Results - Labs Result diagrams: 03/01/18 06:19 03/01/18 06:19 <Brent Garcia - 03/02/18 12:18> Abnormal lab results 03/01/18 03/01/18 03/01/18 Range/Units 12:37 16:11 22:54 POC Glucose 255 H 219 H 251 H (68-110) mg/dl 03/02/18 03/02/18 Range/Units 08:01 11:49 POC Glucose 229 H 268 H (68-110) mg/dl <Brent Garcia - 03/02/18 12:18> Abnormal lab results 03/01/18 03/01/18 03/01/18 Range/Units 12:37 16:11 22:54 POC Glucose 255 H 219 H 251 H (68-110) mg/dl 03/02/18 Range/Units 08:01 POC Glucose 229 H (68-110) mg/dl <Juan Cortés - 03/02/18 11:06> Physical Exam Vital signs: Vital Signs 03/01/18 16:00 03/01/18 19:58 03/02/18 00:00 Temperature 97.9 F 98 F 98.7 F Pulse Rate 88 90 92 H Respiratory Rate 21 18 18 Blood Pressure 130/77 133/69 135/67 Pulse Oximetry 92 L 92 L 92 L 03/02/18 00:57 03/02/18 08:00 Temperature 97.3 F L Pulse Rate 78 Respiratory Rate 20 17 Blood Pressure 159/71 H Pulse Oximetry 92 L Intake & Output 03/01/18 03/02/18 03/02/18 18:59 06:59 18:59 Intake Total 2495 / 2495 4100 / 4100 400 / 400 Balance 2495 / 2495 4100 / 4100 400 / 400 Weight 185 kg Intake: IV 815 / 815 100 / 100 400 / 400 Maxipime Inj 2,000 MG In NS Inj 100 / 100 200 / 200 100 ML @ 200 mls/hr IV.SIG Q12H ARMINDA Rx#:[id number] Vancomycin Inj 1,500 MG In NS 515 / 515 Inj 500 ML @ 250 mls/hr IV.SIG Q24H ARMINDA Rx#:[id number] Flagyl 500 MG Inj 100 ML @ 100 200 / 200 100 / 100 100 / 100 mls/hr IV.SIG Q6H ARMINDA Rx#: [id number] Oral 1680 / 1680 4000 / 4000 Other: # Voids 3 4 # Bowel Movements 1 <Brent Garcia - 03/02/18 12:18> Vital Signs 03/01/18 12:00 03/01/18 16:00 03/01/18 19:58 Temperature 97.9 F 97.9 F 98 F Pulse Rate 85 88 90 Respiratory Rate 20 21 18 Blood Pressure 136/87 130/77 133/69 Pulse Oximetry 95 92 L 92 L 03/02/18 00:00 03/02/18 00:57 03/02/18 08:00 Temperature 98.7 F 97.3 F L Pulse Rate 92 H 78 Respiratory Rate 18 20 17 Blood Pressure 135/67 159/71 H Pulse Oximetry 92 L 92 L Intake & Output 03/01/18 03/02/18 03/02/18 18:59 06:59 18:59 Intake Total 2495 / 2495 4100 / 4100 400 / 400 Balance 2495 / 2495 4100 / 4100 400 / 400 Weight 185 kg Intake: IV 815 / 815 100 / 100 400 / 400 Maxipime Inj 2,000 MG In NS Inj 100 / 100 200 / 200 100 ML @ 200 mls/hr IV.SIG Q12H ARMINDA Rx#:[id number] Vancomycin Inj 1,500 MG In NS 515 / 515 Inj 500 ML @ 250 mls/hr IV.SIG Q24H ARMINDA Rx#:[id number] Flagyl 500 MG Inj 100 ML @ 100 200 / 200 100 / 100 100 / 100 mls/hr IV.SIG Q6H ARMINDA Rx#: [id number] Oral 1680 / 1680 4000 / 4000 Other: # Voids 3 4 # Bowel Movements 1 <Juan Cortés - 03/02/18 11:06> Narrative: GENERAL: Morbidly obese male sitting up in bed, obviously agitated SKIN: Bilateral lower extremities wrapped in gauze but still draining serous/ yellow fluid from the left. Exposed skin shows significant hyperkeratosis and thickening/darkening of the skin. Erythematous rash noted on right groin area, below abdominal fold. CARDIOVASCULAR: Regular rate and rhythm. RESPIRATORY: No accessory muscle use. Clear to auscultation. Breath sounds equal bilaterally. GASTROINTESTINAL: Obese, soft, nondistended. Normoactive bowel sounds NEUROLOGICAL: Awake and alert. <Juan Cortés George - 03/02/18 11:06> Assessment and Plan - Assessment (1) Lymphedema Code(s): I89.0 - Lymphedema, not elsewhere classified Status: Acute (2) Diabetes Code(s): E11.9 - Type 2 diabetes mellitus without complications Status: Acute (3) Neuropathy Code(s): G62.9 - Polyneuropathy, unspecified Status: Acute (4) Agitation Code(s): R45.1 - Restlessness and agitation Status: Acute (5) Fungal infection of skin Code(s): B36.9 - Superficial mycosis, unspecified Status: Acute (6) Nutrition, metabolism, and development symptoms Code(s): R63.8 - Other symptoms and signs concerning food and fluid intake Status: Acute <Brent Garcia - 03/02/18 12:18> (1) Lymphedema Code(s): I89.0 - Lymphedema, not elsewhere classified Status: Acute Plan: Chronic lymphedema with venous stasis and hyperkeratosis Continue IV antibiotics: -Vancomycin 1500 mg IV every 24 hours -Cefepime 2 g IV to 12 hours -Flagyl 500 Q6 Wound cultures with proteus, staph, group D enterococcus, sensitivities back today, will consider switching to PO antibiotics. Blood cultures NGTD Wound management to see the patient and assist with dressing Vascular surgery has evaluated patient and recommend continued compression ID consulted-appreciate recs with possible switch to PO antibiotics CM consulted-assisting in placement to rehab Pain control with [place] on a scale basis and Dilaudid for breakthrough pain Toradol scheduled (2) Diabetes Code(s): E11.9 - Type 2 diabetes mellitus without complications Status: Acute Plan: History of diabetes, poorly controlled -Monitor blood glucose -Low-dose sliding scale insulin -A1C 12.6 (3) Neuropathy Code(s): G62.9 - Polyneuropathy, unspecified Status: Acute Plan: History of neuropathy, reportedly controlled with Lyrica -Lyrica 50 mg p.o. 3 times daily (4) Agitation Code(s): R45.1 - Restlessness and agitation Status: Acute Plan: Patient was very agitated and aggressive with the vascular consultation He did threaten several members of the medical team and previous members of his medical care Psychiatry consult reports threats likely 2/2 frustration. Not an involuntary candidate. (5) Fungal infection of skin Code(s): B36.9 - Superficial mycosis, unspecified Status: Acute Plan: -Patient has moisturizing and antifungal creams in room. Told to mix them and apply -Nystatin powder to be applied after creams to keep moisture down. (6) Nutrition, metabolism, and development symptoms Code(s): R63.8 - Other symptoms and signs concerning food and fluid intake Status: Acute Plan: Fluids: Tolerating p.o. Electrolytes: Monitor and replete as needed Nutrition: Tolerating p.o. diabetic diet <Juan Cortés - 03/02/18 11:01> - Assessment and Plan Dr Garcia <Juan Cortés - 03/02/18 11:06> - Attending Attestation Patient examined independently and case discussed with resident physicians I have read the above note and agree with the assessment/plan as discussed with me I was involved in all medical decision making for this patient Brent Garcia MD <Brent Garcia - 03/02/18 12:18>
--- NOTE | 2018-03-02 14:54 | P.PNADD ---
Addendum to Inpatient Note Additional information: attempted to see the pt He is in th e shower both times I tried to see him His clx and allergy history was reviewed Proteus Enterococcus - usually does not play significant role in skin infectios, more is a coloniser will start on ROcephin IV x 10 days cont flagyl 500 tid q 8 x 10 days He needs to be followed in would clincia COntroll edema weight reduction
--- NOTE | 2018-03-02 14:59 | P.DCO ---
Post Hospital Infusion Therapy Location of Infusion Therapy: [facility] Infusion Therapy Order Patient Weight: 185 kg - Diagnosis (1) Wound infection Code(s): T14.8XXA - Other injury of unspecified body region, initial encounter; L08.9 - Local infection of the skin and subcutaneous tissue, unspecified - Administer Medication Ceftriaxone Dose: 2 grams IV Directions: q 24 hours Start Treatment: 03/02/18 Stop Treatment: 03/12/18 - Additional Information Venous Access: PICC Line Additional Instructions: [x] Peripheral flush and dressing changes per protocol [x] Implanted port and central cable television line technician: * Implanted port: 10 ml Normal Saline followed by 5 ml Heparin 100 units/ml Heparin flush after each use and monthly to maintain. [] May leave port accessed during therapy. [] May leave peripheral site accessed for duration of therapy. [x] If patient has SOB or respiratory distress, check oxygen saturation. If less than 90% or clinical signs of respiratory distress, administer oxygen at 2 L/min. via nasal cannula and notify physician. [x] Anaphylaxis/Reaction orders: * Stop infusion. * Keep IV line open with saline flush. * Notify physician. * Monitor vital signs every 15 minutes until symptoms resolve. * Check Oxygen saturation; Oxygen at 2 L/min. via nasal cannula if less than 90% or clinical signs of respiratory distress. * Administer diphenhydramine (Benadryl) 25 mg IV STAT, (unless patient has received as pre-med). May repeat once, if necessary. * Solu-Cortef 250 mg IVP over 30-60 seconds, use 100 mg vials for each dissolution. * Epinephrine (1mg/1 ml) 0.3 mg subcutaneously or IVP now with any signs of respiratory distress. * Check with physician for new additional pre-med orders if patient is re- challenged or re-treated. [x] May remove PICC line when treatment complete, after confirming with Physician. [x] If the patient is admitted to the hospital, the ED, or transferred via [facility] , complete transfer form including medication reconciliation order sheet. Allergies penicillin G Allergy (Intermediate, Verified 02/25/18 09:52) HIVES morphine Allergy (Mild, Verified 02/25/18 09:52) Dizziness
[2018-03-02] MEDS: Insulin Detemir Inj 1,000 UNIT/10 ML Vial SQ SCH (22:04)
[2018-03-02] MEDS: metroNIDAZOLE 500 MG Tablet PO SCH (22:07)
[2018-03-03] MEDS: metroNIDAZOLE 500 MG Tablet PO SCH ×2 (06:11→14:22)
[2018-03-03] MEDS: Insulin NovoLOG Aspart Correctional Sugar Inj SQ SCH ×3 (09:13→18:18)
[2018-03-03] MEDS: Pregabalin 25 MG Capsule PO SCH ×3 (09:14→18:17)
[2018-03-03] MEDS: Nystatin 100,000 UNITS/GM Powder 15 GM Bottle TOPICAL SCH ×2 (09:15→14:22)
[2018-03-03] MEDS: Senna/Docusate Sodium 8.6/50 MG Tablet PO SCH (09:15)
[2018-03-03] MEDS: Sodium Hypochlorite 0.25% Top Sol 500 ML Bottle TOPICAL SCH (11:18)
--- NOTE | 2018-03-03 11:32 | P.PNFP ---
Subjective Interval history: Mr Connell was seen on rounds today. Sitting up in bed, agitated. he reports his leg pain is stable. He denies any chest pain, shortness of breath, nausea, vomiting, diarrhea. <Roosevelt,Mary E - 03/03/18 11:32> Results - Labs Result diagrams: 03/01/18 06:19 03/01/18 06:19 <JoseBrent - 03/03/18 16:55> Abnormal lab results 03/02/18 03/03/18 03/03/18 Range/Units 21:55 08:12 12:15 POC Glucose 239 H 231 H 235 H (68-110) mg/dl <JoseBrent - 03/03/18 16:55> Abnormal lab results 03/02/18 03/02/18 03/02/18 Range/Units 11:49 16:52 21:55 POC Glucose 268 H 248 H 239 H (68-110) mg/dl 03/03/18 Range/Units 08:12 POC Glucose 231 H (68-110) mg/dl <Mary Albert - 03/03/18 11:32> Physical Exam Vital signs: Vital Signs 03/02/18 20:00 03/03/18 08:00 03/03/18 12:00 Temperature 97.8 F 97.6 F 97.9 F Pulse Rate 91 H 78 82 Respiratory Rate 20 17 20 Blood Pressure 165/72 H 137/77 147/91 H Pulse Oximetry 92 L 95 94 L Intake & Output 03/02/18 03/03/18 03/03/18 18:59 06:59 18:59 Intake Total 5 / 2115 Balance 2114 / 211 Weight 185 kg Intake: IV 1115 / 1115 Maxipime Inj 2,000 MG In NS Inj 200 / 200 100 ML @ 200 mls/hr IV.SIG Q12H ARMINDA Rx#:[id number] Vancomycin Inj 1,500 MG In NS 515 / 515 Inj 500 ML @ 250 mls/hr IV.SIG Q24H ARMINDA Rx#:[id number] Rocephin Inj 2,000 MG In NS Inj 100 / 100 100 ML @ 200 mls/hr IV.SIG Q24H ARMINDA Rx#:[id number] Flagyl 500 MG Inj 100 ML @ 100 200 / 200 mls/hr IV.SIG Q6H ARMINDA Rx#: [id number] Oral 1000 / 1000 Other: # Voids 4 Date of Last Bowel Movement 03/02/18 # Bowel Movements 1 <JoseBrent - 03/03/18 16:55> Vital Signs 03/02/18 12:00 03/02/18 20:00 03/03/18 08:00 Temperature 97.8 F 97.8 F 97.6 F Pulse Rate 85 91 H 78 Respiratory Rate 18 20 17 Blood Pressure 145/81 H 165/72 H 137/77 Pulse Oximetry 93 L 92 L 95 Intake & Output 03/02/18 03/03/18 03/03/18 18:59 06:59 18:59 Intake Total 2114 Balance 2114 Weight 185 kg Intake: IV 1115 / 1115 Maxipime Inj 2,000 MG In NS Inj 200 / 200 100 ML @ 200 mls/hr IV.SIG Q12H ARMINDA Rx#:[id number] Vancomycin Inj 1,500 MG In NS 515 / 515 Inj 500 ML @ 250 mls/hr IV.SIG Q24H ARMINDA Rx#:[id number] Rocephin Inj 2,000 MG In NS Inj 100 / 100 100 ML @ 200 mls/hr IV.SIG Q24H ARMINDA Rx#:[id number] Flagyl 500 MG Inj 100 ML @ 100 200 / 200 mls/hr IV.SIG Q6H ARMINDA Rx#: [id number] Oral 1000 / 1000 Other: # Voids 4 Date of Last Bowel Movement 03/02/18 # Bowel Movements 1 <Mary Albert - 03/03/18 11:32> Narrative: GENERAL: Morbidly obese male sitting up in bed, obviously agitated SKIN: Bilateral lower extremities wrapped in gauze, dried drainage noted on bandages. Exposed skin shows significant hyperkeratosis and thickening/ darkening of the skin. Erythematous rash noted on right groin area, below abdominal fold, stable from previous exam. CARDIOVASCULAR: Regular rate and rhythm. RESPIRATORY: No accessory muscle use. Clear to auscultation. Breath sounds equal bilaterally. GASTROINTESTINAL: Obese, soft, nondistended. Normoactive bowel sounds NEUROLOGICAL: Awake and alert. <Mary Albert - 03/03/18 11:32> Assessment and Plan - Assessment (1) Lymphedema Code(s): I89.0 - Lymphedema, not elsewhere classified Status: Acute (2) Diabetes Code(s): E11.9 - Type 2 diabetes mellitus without complications Status: Acute (3) Neuropathy Code(s): G62.9 - Polyneuropathy, unspecified Status: Acute (4) Agitation Code(s): R45.1 - Restlessness and agitation Status: Acute (5) Fungal infection of skin Code(s): B36.9 - Superficial mycosis, unspecified Status: Acute (6) Nutrition, metabolism, and development symptoms Code(s): R63.8 - Other symptoms and signs concerning food and fluid intake Status: Acute <Brent Garcia - 03/03/18 16:55> (1) Lymphedema Code(s): I89.0 - Lymphedema, not elsewhere classified Status: Acute Plan: Chronic lymphedema with venous stasis and hyperkeratosis -Transition to PO antibiotics on dc, Bactrim and flagyl Continue IV antibiotics: -Vancomycin 1500 mg IV every 24 hours -Ceftriaxone 2g -Flagyl 500 Q6 Wound cultures with proteus, group D enterococcus, sensitivities back today, switching to PO antibiotics. Blood cultures NGTD Wound management to see the patient and assist with dressing Vascular surgery has evaluated patient and recommend continued compression ID consulted-appreciate recs with possible switch to PO antibiotics CM consulted-assisting in placement to rehab Pain control with [place] on a scale basis and Dilaudid for breakthrough pain Toradol scheduled (2) Diabetes Code(s): E11.9 - Type 2 diabetes mellitus without complications Status: Acute Plan: History of diabetes, poorly controlled -Monitor blood glucose -Low-dose sliding scale insulin -A1C 12.6 (3) Neuropathy Code(s): G62.9 - Polyneuropathy, unspecified Status: Acute Plan: History of neuropathy, reportedly controlled with Lyrica -Lyrica 50 mg p.o. 3 times daily (4) Agitation Code(s): R45.1 - Restlessness and agitation Status: Acute Plan: Patient was very agitated and aggressive with the vascular consultation He did threaten several members of the medical team and previous members of his medical care Psychiatry consult reports threats likely 2/2 frustration. Not an involuntary candidate. (5) Fungal infection of skin Code(s): B36.9 - Superficial mycosis, unspecified Status: Acute Plan: -Patient has moisturizing and antifungal creams in room. Told to mix them and apply -Nystatin powder to be applied after creams to keep moisture down. (6) Nutrition, metabolism, and development symptoms Code(s): R63.8 - Other symptoms and signs concerning food and fluid intake Status: Acute Plan: Fluids: Tolerating p.o. Electrolytes: Monitor and replete as needed Nutrition: Tolerating p.o. diabetic diet <Mary Albert 03/03/18 11:24> - Assessment and Plan Discussed Condition With: Dr Garcia <Mary Albert 03/03/18 11:32> Discharge Planning: Discussed with case management today. Consideration for possible discharge to a rehab facility. Case management will continue to work on finding placement. <Mary Albert 03/03/18 11:32> - Attending Attestation Patient examined during medical rounds with the resident this morning I have read the above note and agree with the assessment/plan as discussed with me I was involved in all medical decision making for this patient Brent Garcia MD <Brent Garcia - 03/03/18 16:55>
--- NOTE | 2018-03-03 15:29 | P.PNID ---
Subjective Remarks: afebrile no new complaints Antibiotics: CFTX flagyl TS Allergies/Adverse Reactions: Allergies penicillin G Allergy (Intermediate, Verified 02/25/18 09:52) HIVES morphine Allergy (Mild, Verified 02/25/18 09:52) Dizziness Objective Vital Signs 03/02/18 20:00 03/03/18 08:00 03/03/18 12:00 Temperature 97.8 F 97.6 F 97.9 F Pulse Rate 91 H 78 82 Respiratory Rate 20 17 20 Blood Pressure 165/72 H 137/77 147/91 H Pulse Oximetry 92 L 95 94 L Intake & Output 03/02/18 03/03/18 03/03/18 18:59 06:59 18:59 Intake Total 2114 Balance 2114 Weight 185 kg Intake: IV 1115 / 1115 Maxipime Inj 2,000 MG In NS Inj 200 / 200 100 ML @ 200 mls/hr IV.SIG Q12H ARMINDA Rx#:[id number] Vancomycin Inj 1,500 MG In NS 515 / 515 Inj 500 ML @ 250 mls/hr IV.SIG Q24H ARMINDA Rx#:[id number] Rocephin Inj 2,000 MG In NS Inj 100 / 100 100 ML @ 200 mls/hr IV.SIG Q24H ARMINDA Rx#:[id number] Flagyl 500 MG Inj 100 ML @ 100 200 / 200 mls/hr IV.SIG Q6H ARMINDA Rx#: [id number] Oral 1000 / 1000 Other: # Voids 4 Date of Last Bowel Movement 03/02/18 # Bowel Movements 1 02/25/18 08:45 Blood - Peripheral Aerobic Blood Culture - Final No growth in 5 days 02/25/18 08:45 Blood - Peripheral Anaerobic Blood Culture - Final No growth in 5 days 02/25/18 08:55 Blood - Peripheral Aerobic Blood Culture - Final No growth in 5 days 02/25/18 08:55 Blood - Peripheral Anaerobic Blood Culture - Final No growth in 5 days Lab - Chemistry Results 03/01/18 03/01/18 03/02/18 16:11 22:54 08:01 POC Glucose 219 H 251 H 229 H 03/02/18 03/02/18 03/02/18 11:49 16:52 21:55 POC Glucose 268 H 248 H 239 H 03/03/18 03/03/18 08:12 12:15 POC Glucose 231 H 235 H Physical Exam: GENERAL: NAD morbidly obese SKIN: Warm and dry. MUSCULOSKELETAL: BLE with prominent pachydermia, tree bark skin changes and improved erythema Odor resolved Neuro: non focal Psych: verbally abusive to staff and undersigned Assessment and Plan (1) Wound infection Status: Acute Code(s): T14.8XXA - Other injury of unspecified body region, initial encounter; L08.9 - Local infection of the skin and subcutaneous tissue, unspecified - Plan BLE chronic venstasis Infected venostatsis ulcers NMorbid obesity This is very severe, chronic long standing case Pt claims PCN allergy, but told me he never had PCN himself ,but multiple family members suffered PCN reactions and therefore he refuses PCN Clx with Proteus and Enterococcus - enterococcu usually a coloniser in those clx and wont carry clin significalnce Insurance wont approve IV abx OK to dc to SNF with Bactrim DS 2 PO bid + Flagyl x 10 days MOnitor for recurrence Local care; lympedema clicnai might be helpful Weight reduction and edema controll in a long run dw case mngr dw Dr Donaldson
--- NOTE | 2018-03-04 11:28 | P.AMA ---
AMA Note - AMA Note AMA Statement: Patient Brent Connell has decided to leave the hospital against medical advice. This patient has the capacity to refuse care and understands the risks of leaving, including permanent disability and/or , and has had an opportunity to ask questions about his/her condition. The patient has been informed that he/she may return for care at any time, and follow up has been arranged/advised. Will not be accepted back to resident service. - AMA Note Discharge Disposition: Left Against Medical Advice Patient Condition on Discharge: Stable
--- NOTE | 2018-03-19 08:23 | P.DS ---
Date of admission: 02/25/18 12:57 Primary care physician: Marquez Solo Brief History from admission: Patient is a 52-year-old male with past history of lymphedema, diabetes, neuropathy who presents today for worsened lymphedema. He states that his legs have been worsening over the past week. Typically has his bandages changed 2 times per week on Mondays and . Reports 2 days ago and his dressing change his legs "exploded this week" stating that pus, blood, tissue popped off of his legs when the dressings were removed. He reports significant pain in his legs, much worse today, described as a constant burning sensation. He is barely unable to walk normally. Significant feet and ankle swelling, worse today. He states he is unsure of the official diagnosis of his legs, states he has had biopsies in the past with unknown results. He states that outpatient he has been on cephalexin which has been taking up until recently. He also notes neuropathic pain in his feet with numbness, tingling, burning. Typically it is well controlled on Lyrica. He denies nausea, vomiting, fever, chills, abdominal pain, chest pain, shortness of breath, lightheadedness, dizziness, changes in vision, changes in bowel or bladder habits. DS: Diagnosis - Discharge Diagnosis (1) Lymphedema Status: Acute (2) Diabetes Status: Acute (3) Neuropathy Status: Acute (4) Agitation Status: Acute (5) Fungal infection of skin Status: Acute (6) Nutrition, metabolism, and development symptoms Status: Acute DS: Medications - Discharge Medications Prescriptions: hydrocodone-acetaminophen 2 tab PO Q6H PRN #30 tab PRN Reason: Chronic Pain nystatin [Nystop] 1 applicatio TOPICAL QID #1 ea DS: Summary Hospital Course: Mr. Connell is a 52-year-old homeless male who was admitted on 02/25 with worsening lymphedema and suspicion of cellulitis infection of bilateral lower extremities. Patient was placed on lateral, cefepime and vancomycin. Blood cultures and wound cultures were taken. Vascular surgery, wound care, infectious disease consulted. Vascular surgery did not recommend surgical intervention at this time. Wound care recommended [place] solution. During his stay he repeatedly made threats and aggressive comments towards staff including some homicidal statements. Psychiatry was consulted and evaluated the patient and believed him to have adjustment disorder with disturbance of conduct. During his stay continued with wound care and pain control while awaiting placement. In order to make more options available for fpc facility placement patient was transitioned to p.o. antibiotics (Bactrim and metronidazole) based on sensitivities of wound culture. Patient was set to go to fpc facility but upon further review of his records due to his aggressive behavior at the facility did not feel comfortable receiving the patient. When patient was informed of this he elected to leave AMA. Patient was discharged on 03/04 AGAINST MEDICAL ADVICE. - Time Spent with Patient Total time spent providing and/or coordinating discharge services: Greater than 30 minutes - Quality: VTE Deep Vein Thrombosis/Pulmonary Embolism Present on Admission: No Results Procedures completed during hospitalization: None Discharge Plan - Discharge Disposition Patient Disposition: Left Against Medical Advice - Discharge Condition Condition: Stable - Discharge Order Discharge Orders: AMA Discharge (Routine); Ordered 03/04/18 Ordered By: Luis Miner Discharge Order (Routine); Ordered 03/02/18 Ordered By: Juan Cortés Infectious Disease Clear for Discharge (Routine); Ordered 03/03/18 Ordered By: Shayna Ledbetter - Discharge Details Anticipated Discharge Date: 03/02/18 - Physicians Team Primary Care Provider: Marquez Solo Attending Provider: Brent Garcia Other Providers: Shayna Ledbetter MD ; Tigre Quinn MD ; Rashawn Lara MD ; & [facility] ; [facility] ; [facility] ; [facility]
== END 2018-03-03 18:42 | disposition left against medical advice (07) ==
LOC: NEPC 08:26 → NEDA 12:57 → N07 16:30
PROVIDERS: ADMIT Family Medicine; ATTEND Family Medicine